=== PATIENT | male | born 1970 | race Caucasian/White ===

== ENCOUNTER → 2020-06-06 06:35 | Outpatient (CLI) | payer BC, SELFPAY ==
[2020-06-06 20:46] LABS: SARS-CoV-2 RNA PCR Negative
== END ==
PROVIDERS: PCP Internal Medicine; Visit Provider Internal Medicine
DX: R05 Cough (principal); Z20.822 Contact with and (suspected) exposure to COVID-19
CPT/HCPCS: C9803; U0003; U0005

== ENCOUNTER 2022-03-08 03:46 | Day surgery (SDC) | payer BC, SELFPAY ==
[2022-02-28 13:56] VITALS: BMI 34.4
--- NOTE | 2022-03-07 14:24 | PM.HPGS ---
History of Present Illness History of Present Illness Consent: Risks, benefits, and alternatives have been discussed and questions answered. Patient agrees to proceed with procedure. Chief complaint: GERD Narrative: Eligio Cao is a 51 year old male with chronic reflux symptoms. This began suddenly about 3 or 4 months ago with burning that would come up into his throat. He had relief with [id number] Pepcid and then Prilosec. He has been switched to prescription pantoprazole but now is having breakthrough symptoms. He denies dysphagia Review of Systems Review of Systems: All systems reviewed & are unremarkable except as noted in HPI and below PMFSH Past Medical History Medical History Diabetes GERD (gastroesophageal reflux disease) Glaucoma HTN (hypertension) Hypercholesterolemia Obesity Social History Social History Smoking status: Never smoker Alcohol intake: current Drinks per week: 2 Substance use: never Substance use type: does not use Living arrangements: other Additional living arrangements comments: With Meds Home Medications and Allergies Home Medications Medication Instructions Recorded Confirmed Type atorvastatin 10 mg tablet 10 mg PO DAILY 02/28/22 03/08/22 History lisinopril 10 mg tablet 10 mg PO DAILY 02/28/22 03/08/22 History metformin 500 mg tablet,extended 500 mg PO DAILY 02/28/22 03/08/22 History release 24 hr montelukast 10 mg tablet 10 mg PO DAILY 02/28/22 03/08/22 History pantoprazole 40 mg tablet,delayed 40 mg PO DAILY 02/28/22 03/08/22 History release semaglutide 0.25 mg or 0.5 mg (2 0.5 mg subcut WEEKLY 02/28/22 03/08/22 History mg/1.5 mL) subcutaneous pen injector (Ozempic) timolol maleate 0.5 % eye drops 1 drp EACH EYE DAILY 02/28/22 03/08/22 History Allergies Allergy/AdvReac Type Severity Reaction Status Date / Time PROCHLORPERAZINE EDISYLATE Allergy Mild SEIZURE Uncoded 03/08/22 06:59 PROCHLORPERAZINE MALEATE Allergy Mild SEIZURE Uncoded 03/08/22 06:59 Exam Const: General: alert Orientation/consciousness: patient oriented x3 Resp: Auscultation: clear to auscultation bilaterally Cardio: Rhythm: regular rhythm GI: GI Palp: Yes Soft to palpation and No Tenderness to palpation present (GI) Neuro: General: patient oriented x3 Assessment and Plan Assessment and plan (1) GERD (gastroesophageal reflux disease): Code(s): K21.9 - Gastro-esophageal reflux disease without esophagitis Status: Acute Assessment and Plan: EGD with possible biopsy or dilatation or cautery.
--- NOTE | 2022-03-07 16:02 | P.PNAN_ITS ---
Anes - Initial Pre Proc Eval Procedure: Operation Date: 03/08/22 08:00 Proposed Procedures p Esophagogastroduodenoscopy - Patrice Yang MD Date/Time: 03/07/22 16:02 Surgeon: Patrice Yang MD Pre Op Diagnosis: GERD Patient Data Age: 51 Gender: M Height: 1.78 m Weight: 109 kg Allergies Allergy/AdvReac Type Severity Reaction Status Date / Time PROCHLORPERAZINE EDISYLATE Allergy Mild SEIZURE Uncoded 03/08/22 06:59 PROCHLORPERAZINE MALEATE Allergy Mild SEIZURE Uncoded 03/08/22 06:59 Home Medications Medication Instructions Recorded Confirmed Type atorvastatin 10 mg tablet 10 mg PO DAILY 02/28/22 03/08/22 History lisinopril 10 mg tablet 10 mg PO DAILY 02/28/22 03/08/22 History metformin 500 mg tablet,extended 500 mg PO DAILY 02/28/22 03/08/22 History release 24 hr montelukast 10 mg tablet 10 mg PO DAILY 02/28/22 03/08/22 History pantoprazole 40 mg tablet,delayed 40 mg PO DAILY 02/28/22 03/08/22 History release semaglutide 0.25 mg or 0.5 mg (2 0.5 mg subcut WEEKLY 02/28/22 03/08/22 History mg/1.5 mL) subcutaneous pen injector (Ozempic) timolol maleate 0.5 % eye drops 1 drp EACH EYE DAILY 02/28/22 03/08/22 History Patient hx anesthesia problems: none Family hx anesthesia problems: none Results Review: All pre-operative results and documents have been reviewed as part of the pre- operative evaluation. REPLACED BY [facility] Past Medical History Medical History Diabetes GERD (gastroesophageal reflux disease) Glaucoma HTN (hypertension) Hypercholesterolemia Obesity Social History Social History Smoking status: Never smoker Alcohol intake: current Drinks per week: 2 Substance use: never Substance use type: does not use Living arrangements: other Additional living arrangements comments: With Anes - Eval Final PreProcedure Day of Procedure 03/07/22 16:02 Patient weight: obese Heart: regular rate and rhythm Lungs: clear to auscultation and normal air movement Airway: Mallampati scale class II Neurological: alert and oriented Last oral intake: >/= 8 hours ASA classification: III Emergent: no Anesthetic plan: proceed Anesthesia type and monitoring: general GIVS Results Review: All pre-operative results and documents have been reviewed as part of the pre- operative evaluation. Informed Consent: The patient's anesthetic plan and its attendant risks and benefits were discussed with the patient/family/POA. Questions were solicited and answers provided to the satisfaction of the patient/family/POA.
[2022-03-08 06:58] LABS: Glucose Point of Care 215 mg/dl (65-105)
[2022-03-08 07:04] VITALS: BP 151/89; PULSE 82; RESP 20; TEMP 36.2; O2SAT 97
[2022-03-08] MEDS: LACTATED RINGERS 1,000 ML 150 ML IV CONT (07:21)
[2022-03-08 08:18] VITALS: BP 103/74; PULSE 96; RESP 19; TEMP 36.2; O2SAT 97
[2022-03-08 08:26] VITALS: BP 115/73; PULSE 78; RESP 18; TEMP 36.2; O2SAT 100
[2022-03-08 08:34] VITALS: BP 128/94; PULSE 84; RESP 22; TEMP 36.2; O2SAT 100
== END 2022-03-08 08:36 | disposition home or self-care (01) ==
PROVIDERS: PCP Internal Medicine; Visit Provider Internal Medicine Gastroenterology
PROC: 0DJ08ZZ Inspection of Upper Intestinal Tract, Via Natural or Artificial Opening Endoscopic (ICD-10-PCS; CPT 43235; principal; 2022-03-08 08:00)
DX: K21.9 Gastro-esophageal reflux disease without esophagitis (principal); K22.2 Esophageal obstruction; E11.9 Type 2 diabetes mellitus without complications; I10 Essential (primary) hypertension; E78.00 Pure hypercholesterolemia, unspecified; H40.9 Unspecified glaucoma; Z79.84 Long term (current) use of oral hypoglycemic drugs; Z79.899 Other long term (current) drug therapy; E66.9 Obesity, unspecified; Z68.35 Body mass index [BMI] 35.0-35.9, adult
CPT/HCPCS: 43239; 82948; 88305; J2704; J7120

== ENCOUNTER 2023-08-25 11:08 | Outpatient (CLI) | payer BC, SELFPAY ==
--- NOTE | ~2023-08-25 | XR_ITS ---
Clinical Indication: Chest pain PA and lateral views of the chest: Comparison: 10/22/2003 Findings: The lungs are clear, without evidence of focal consolidation or pleural effusion. Cardiome diastinal silhouette is within normal limits. Bones and soft tissues are unremarkable. Impression: Normal chest. Reviewed, dictated and finalized at location . Impression: Normal chest.
== END 2023-08-25 11:09 ==
PROVIDERS: PCP Internal Medicine; Visit Provider Internal Medicine
DX: R07.9 Chest pain, unspecified (principal)
CPT/HCPCS: 71046

== ENCOUNTER 2024-12-31 11:06 | Observation (INO) | payer BC, SELFPAY ==
[2024-12-31] VITALS (15 sets, daily range): BP systolic 137–154; BP diastolic 90–104; PULSE 75–96; RESP 12–19; TEMP 36.4–36.9; O2SAT 93–97; BMI 36.7
--- NOTE | ~2024-12-31 | XR_ITS ---
Examination: XR chest 2V Clinical History: chest pain and tightness during stress in cardiology Comparison: 08/25/2023 Technique: PA and Lateral Findings: Cardiomediastinal silhouette normal size and configuration. Lungs clear. No acute bony abnormality. IMPRESSION: 1. No acute cardiopulmonary findings. Reviewed, dictated and finalized at location R. CTURAL FITTER
--- NOTE | 2024-12-31 11:10 | ECG_ITS ---
Test Date: 2024-12-31 11:22:04 Measurements Intervals [place] Rate: 90 P: 26 CA: 125 QRS: 3 QRSD: 108 T: 33 QT: 373 QTc: 457 Interpretive Statements SINUS RHYTHM INCOMPLETE RIGHT BUNDLE BRANCH BLOCK [90+ ms QRS DURATION, TERMINAL R IN V1/V2, 40+ ms S IN I/aVL/V4/V5/V6] NONSPECIFIC T-WAVE ABNORMALITY BORDERLINE ECG No previous ECG available for comparison Electronically Signed On 12-31-2024 11:31:59 COLLISION REPAIR TECHNICIAN by Iglesia Odell M.D.
[2024-12-31 12:04] LABS: Hematocrit 46.4 % (42.0-52.0); Hemoglobin 16.5 g/dL (14.0-18.0); Immature Granulocyte Percent A 0.3 % (0-0.5); Lymphocytes Absolute Auto 2.10 K/mm3 (0.9-3.2); Mean Corpuscular HGB Conc 35.6 g/dl (32-36); Mean Corpuscular Hemoglobin 30.1 pg (26-34); Mean Corpuscular Volume 84.5 fl (80-100); Nucleated Red Blood Cells Absolute Auto 0.000 K/mm3 (0.0-0.012); Nucleated Red Blood Cells Perc 0.0 % (0.0-0.2); Platelet Count Result 229 k/mm3 (150-375); Red Blood Count 5.49 M/mm3 (4.6-6.20); White Blood Count 7.5 K/mm3 (4.5-10.0)
--- NOTE | 2024-12-31 12:15 | ED.CHESTPAIN ---
HPI - Chest Pain General Chief Complaint: Chest Pain Stated Complaint: chest pain and tightness Time Seen by Provider: 12/31/24 12:06 Source: patient Mode of arrival: ambulatory Limitations: no limitations History of Present Illness HPI narrative: 54 white male came to the ED after having chest pain urine cardiac stress test resolved on nitroglycerin. On arrival to the ED patient is asymptomatic. Patient been complaining of intermittent chest pain for the last 3 weeks, come on exertion last less than 15 minutes and then resolves at rest. Denies associated shortness of breath or diaphoresis or radiation of pain. Pain is dull aching, across the lower chest. History of diabetes hypertension hyperlipidemia strong family history of coronary artery disease. Patient did not eat his breakfast or taking his morning medication because of the cardiac stress test today. Related Data Home Medications ?Medication ?Instructions ?Recorded ?Confirmed ?Last Taken ?Type atorvastatin 10 mg tablet 10 mg PO DAILY 02/28/22 12/31/24 12/31/24 15:30 History 10 mg metformin 500 mg tablet,extended 500 mg PO DAILY 02/28/22 12/31/24 12/31/24 15:30 History release 24 hr 500 mg montelukast 10 mg tablet 10 mg PO DAILY 02/28/22 12/31/24 12/31/24 15:30 History 10 mg pantoprazole 40 mg tablet,delayed 40 mg PO DAILY 02/28/22 12/31/24 12/31/24 15:30 History release 40 mg semaglutide 0.25 mg or 0.5 mg (2 0.5 mg subcut WEEKLY 02/28/22 12/31/24 12/29/24 History mg/1.5 mL) subcutaneous pen injector ([facility]) timolol maleate 0.5 % eye drops 1 drp EACH EYE DAILY 02/28/22 12/31/24 12/30/24 21:00 History 1 drp carvedilol 12.5 mg tablet 6.25 mg PO Q12H 12/31/24 12/31/24 12/31/24 15:30 History 12.5 mg losartan 50 mg-hydrochlorothiazide 1 tablet PO DAILY 12/31/24 12/31/24 12/31/24 15:30 History 12.5 mg tablet 1 tablet psyllium husk See Rx Instructions PO DAILY 12/31/24 12/31/24 12/30/24 08:00 History 1 Allergies Allergy/AdvReac Type Severity Reaction Status Date / Time PROCHLORPERAZINE EDISYLATE Allergy Severe SEIZURE Uncoded 12/31/24 16:35 PROCHLORPERAZINE MALEATE Allergy Severe SEIZURE Uncoded 12/31/24 16:35 Review of Systems Review of Systems: All systems reviewed & are unremarkable except as noted in HPI and below PMFSH Past Medical History Medical History Obesity Glaucoma Diabetes HTN (hypertension) Hypercholesterolemia GERD (gastroesophageal reflux disease) Family History Family History Grandparent ETOH abuse Myocardial infarct Father High cholesterol Father Diabetes type 2 Father H/O heart artery stent Father Hypertension Other CAD (coronary artery disease) Myocardial infarct S/P CABG (coronary artery bypass graft) Father CAD (coronary artery disease) Father No problems noted. Social History Social History Smoking status: Never smoker Alcohol intake: current Drinks per week: 3 Substance use: never Substance use type: does not use Lack of Transportation: No Lack of Food: Never True Current Housing: I Have Housing Concerned About Future Housing: No Difficulty Paying Gas/Electric Bills: No Difficulty Paying for Meds: No Currently Unemployed: No Education: Bachelor's Degree Difficulty w/ Childcare or Family Care: No Living arrangements: other Additional living arrangements comments: With Spiritual care concerns: No Exam Narrative: General appearance: Well-developed, well-nourished Skin: Normal color Head: Normocephalic, nontraumatic Eyes: Clear conjunctiva ENT: Oropharynx normal, ears normal, nose normal Neck: Supple, nontender Chest and respiratory: Airway patent, no respiratory distress, no accessory muscle use Heart: Regular rate/rhythm Abdomen: Soft, nontender, no organomegaly, quiet bowel sounds Vascular: Normal peripheral pulses, normal capillary refill. 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, no gross motor deficit Course Vital Signs Vital signs: Vital Signs Pulse Rate 93 12/31/24 11:12 Respiratory Rate 16 12/31/24 11:12 Pulse Oximetry 97 12/31/24 11:12 Oxygen Delivery Room Air 12/31/24 11:12 Temperature 36.4 C L 12/31/24 20:31 Pulse Rate 75 12/31/24 22:00 Respiratory Rate 14 12/31/24 20:31 Blood Pressure 143/92 H 12/31/24 20:31 Pulse Oximetry 93 12/31/24 20:31 Oxygen Delivery Room Air 12/31/24 11:27 MDM - Chest Pain MDM Narrative Medical decision making narrative: Patient had chest pain during cardiac stress test referred to the emergency room for further evaluation Vital signs stable Physical examination is unremarkable Differential diagnosis include unstable angina, coronary artery syndrome Blood workup today includes CBC, CMP, troponin, proBNP showed blood glucose 235, AST 60, ALT 105 otherwise insignificant EKG showed normal sinus rhythm Chest x-ray showed no acute abnormality Elevated blood glucose because patient did not take his diabetes medicine this morning prior to stress test. Patient cardiac score is 4 Diagnosis unstable angina Admit to hospitalist. Differential Diagnosis Differential diagnosis: Likely other (As above) Lab Data Attestation: I reviewed the patient's lab results. 12/31/24 11:54 12/31/24 11:54 Labs: Lab Results 12/31/24 Range/Units 11:54 WBC 7.5 (4.5-10.0) K/mm3 RBC 5.49 (4.6-6.20) M/mm3 Hgb 16.5 (14.0-18.0) g/dL Hct 46.4 (42.0-52.0) % MCV 84.5 (80-100) fl MCH 30.1 (26-34) pg MCHC 35.6 (32-36) g/dl RDW 12.8 (11.5-14.5) % Plt Count 229 (150-375) k/mm3 MPV 9.1 (7.4-10.4) fl Immature Gran % (Auto) 0.3 (0-0.5) % Neut % (Auto) 61.3 (45.5-73.1) % Lymph % (Auto) 27.9 (18.3-44.2) % [place] % (Auto) 7.7 (2.6-8.5) % Eos % (Auto) 2.1 (0-4.4) % Baso % (Auto) 0.7 (0.2-1.2) % Lymph # (Auto) 2.10 (0.9-3.2) K/mm3 [place] # (Auto) 0.6 (0.1-0.6) K/mm3 Eos # (Auto) 0.2 (0-0.3) K/mm3 Baso # (Auto) 0.1 (0.0-0.1) K/mm3 Abs Immat Gran (auto) 0.02 (0.00-0.031) K/mm3 Absolute Neuts (auto) 4.6 (1.3-6.7) K/mm3 Absolute Nucleated RBC 0.000 (0.0-0.012) K/mm3 Nucleated RBC % 0.0 (0.0-0.2) % PT 14.7 (11.1-14.7) Seconds INR 1.1 APTT 31.7 (22.3-36.8) Seconds Sodium 134 L (137-145) mmol/L Potassium 3.5 (3.4-5.0) mmol/L Chloride 99 (98-107) mmol/L Carbon Dioxide 26 (22-30) mmol/L Anion Gap 9 (4-12) mmol/L BUN 10 (9-20) mg/dL Creatinine 0.71 (0.7-1.3) mg/dL Estim Creat Clear Calc 129 ml/min Estimated GFR > 60 (59 - ) Glucose 235 H (65-110) mg/dL Calcium 8.9 (8.4-10.2) mg/dL Total Bilirubin 1.1 (0.2-1.3) mg/dL AST 60 H (17-59) U/L ALT 105 H (6-50) U/L Alkaline Phosphatase 77 (38-126) U/L Troponin I < 0.012 (0.000-0.034) ng/mL Total Protein 7.6 (6.3-8.2) g/dL Albumin 4.3 (3.5-5.1) g/dL Lipase 156 (23-300) U/L Imaging Data Radiologist's impression: Impressions Chest X-Ray 12/31/24 11:36 IMPRESSION: 1. No acute cardiopulmonary findings. ECG Data EKG #1: Attestation: I personally reviewed and interpreted this ECG as follows: ECG completion date: 12/31/24 Interpretation: Normal sinus rhythm at 90 beats per minute, incomplete right bundle-branch block, nonspecific T-wave abnormality, borderline EKG, no previous EKG available for comparison Critical Care Time Critical Care Time Critical Care Time: No Discharge Plan Discharge Clinical Impression: Angina pectoris, unstable Patient Disposition: Still a Patient Condition: Improved Quality HEART score for chest pain patients History: moderately suspicious ECG: normal Age: > 45 and < 65 years Risk factors: > or = to 3 risk factors of atherosclerotic disease Troponin: < or = to 1x normal limit Heart score: 4
[2024-12-31 12:18] LABS: INR 1.1; Prothrombin Time 14.7 Seconds (11.1-14.7)
[2024-12-31 12:19] LABS: Partial Thromboplastin Time 31.7 Seconds (22.3-36.8)
[2024-12-31 12:35] LABS: Alanine Aminotransferase 105 U/L (6-50); Albumin Level 4.3 g/dL (3.5-5.1); Alkaline Phosphatase 77 U/L (38-126); Anion Gap 9 mmol/L (4-12); Aspartate Amino Transferase 60 U/L (17-59); Bilirubin,Total 1.1 mg/dL (0.2-1.3); Blood Urea Nitrogen 10 mg/dL (9-20); Calcium 8.9 mg/dL (8.4-10.2); Carbon Dioxide 26 mmol/L (22-30); Chloride 99 mmol/L (98-107); Estimated CRCL calculation 129 ml/min; Estimated Glomerular Filt Rate > 60; Glucose 235 mg/dL (65-110); Lipase 156 U/L (23-300); Potassium 3.5 mmol/L (3.4-5.0); Sodium 134 mmol/L (137-145); Total Protein 7.6 g/dL (6.3-8.2)
[2024-12-31 12:46] LABS: Troponin I < 0.012 ng/mL (0.000-0.034)
--- OUTSIDE RECORDS SUMMARY | 2024-12-31 12:48 | XMS_ITS | Data Portability ---
Author Organization [facility] [place] Address [address] [place] [address] Care Team Providers Care Music Theory Professor Name Role Phone AYANNA GARCIAS Primary Care Provider TORO BRITT JR Motorcycle Fabricator [phone] [facility] [employer] Project Manager [phone] Assessment Encounter Date Assessment Date Assessment LastModified by Organization Details LastModified Time 05/05/2023 05/05/2023 Blood work old records dyslipidemia atorvastatin diabetes metformin and Ozempic hypertension lisinopril GERD pantoprazole follow-up 4 months [email or web address] Not available 05/11/2023 21:46:09 08/25/2023 08/25/2023 EKG shows a normal sinus rhythm his blood pressure is up a little bit today increase lisinopril to 20 mg daily he will get a chest x-ray for the inflammation in his chest wall prednisone 40 mg daily x3 days he will let me know in 72 hours how he is doing blood work has been reviewed I will wait to hear from him in 72 hours he was instructed that if his symptoms worsen or if he starts developing shortness of breath or dizziness or feeling like he is going to pass out or diaphoresis explained in layman's terms his unexplained sweaty episodes to go to the emergency room and he voiced understanding [email or web address] Not available 08/25/2023 22:59:13 01/05/2024 01/05/2024 we will continue current therapy healthy lifestyle care instructions blood work has been ordered get colonoscopy that he has had done at [facility] set up for Podiatry for foot exam he continues to see his eye exams annually all questions answered follow up 4 months Not available 01/05/2024 22:26:28 07/01/2024 07/01/2024 Blood work ordered we will continue current therapy he will follow up in 6 months' time [email or web address] Not available 07/03/2024 22:12:39 12/23/2024 12/23/2024 EKG does have some baseline artifact but appears to be a sinus rhythm maybe some T-wave flattening anterior precordial leads and high lateral leads again there are some irregularities due to artifact DC (lisinopril. Check CBC CMP lipid high sensitivity CRP and lipoprotein a Lexiscan complete echo cardiology consultation see me in 3 weeks. [email or web address] Not available 12/26/2024 22:50:16 Plan of Treatment Reminders Order Date Submit Date Provider Last Modified By Organization Details Last Modified Time Details Appointments ANY 15 2024 02:00P M Ayanna Garcias MD Not available Not available Not available Lab HbA1c (hemoglob in A1c), blood 2024 025 [email or web address] [facility] (Centralized Electronic Ordering - All Locations), Patient Can Go To The Location Of Their Choice, 12/23/2024 15:05:36 CRP, high sensitivi ty, serum or plasma 2024 025 [email or web address] [facility] (Centralized Electronic Ordering - All Locations), Patient Can Go To The Location Of Their Choice, 12/23/2024 15:05:36 lipoprote in a, qn, serum 2024 025 [facility] (Centralized Electronic Ordering - All Locations), Patient Can Go To The Location Of Their Choice, 12/23/2024 15:05:36 CMP, serum or plasma 2024 025 [email or web address] [facility] (Centralized Electronic Ordering - All Locations), Patient Can Go To The Location Of Their Choice, 12/23/2024 15:05:36 lipid panel, serum 2024 025 [email or web address] [facility] ([facility]ized Electronic Ordering - All Locations), Patient Can Go To The Location Of Their Choice, 12/23/2024 15:05:36 CBC w/ auto diff 2024 025 [id number] [facility] (Centralized Electronic Ordering - All Locations), Patient Can Go To The Location Of Their Choice, [id number] 12/23/2024 15:05:36 HbA1c (hemoglob in A1c), blood 2024 025 [facility], [address], [address], [place], [address], 07/21/2024 09:09:09 lipid panel, serum 2024 025 [facility], [address], [address], [place], [address], 07/21/2024 09:09:07 CMP, serum or plasma 2024 025 [facility], [address], [address], [place], [address], 07/21/2024 09:09:08 CBC w/ auto diff 2024 025 [facility], [address], [address], [place], [address], 07/21/2024 09:09:10 HbA1c (hemoglob in A1c), blood 2023 024 [facility], [address], [address], [place], [address], 01/30/2024 11:10:26 albumin/c reatinine , mass ratio, urine 2023 024 [facility], [address], [address], [place], [address], 01/30/2024 11:10:23 lipid panel, serum 2023 024 [facility], [address], [address], [place], [address], 01/30/2024 11:10:24 CBC w/ auto diff 2023 024 [facility], [address], [address], [place], [address], 01/30/2024 11:10:28 CMP, serum or plasma 2023 024 [facility], [address], [address], [place], [address], 01/30/2024 11:10:25 PSA, total, serum or plasma 2023 024 [facility], [address], [address], [place], [address], 08/23/2023 10:20:33 HbA1c (hemoglob in A1c), blood 2023 024 [facility], [address], [address], [place], [address], 08/23/2023 10:20:32 CMP, serum or plasma 2023 024 [facility], [address], [address], [place], [address], 08/23/2023 10:20:32 lipid panel, serum 2023 024 [facility], [address], [address], [place], [address], 08/23/2023 10:20:31 CBC w/ auto diff 2023 024 [facility], [address], [address], [place], [address], 08/23/2023 10:20:33 Referral cardiolog ist referral 2024 025 [email or web address] [facility], [address] [place] [address] [address], [place], [address], 12/23/2024 15:05:36 podiatris t referral 2023 024 [facility] Toro Britt Jr DPM, [address], [address], [place], [address], 03/02/2024 12:53:50 Procedures treadmill nuclear stress test (PROC) 2024 [facility], [address] [place] [address] [address], [facility] [address], [place], [address], 12/31/2024 12:14:23 Surgeries None recorded. Imaging US, echocardi ogram 2024 [email or web address] [facility], [facility] [address], [facility] [address], [place], [address], 12/24/2024 09:10:35 electroca rdiogram 2024 025 [email or web address] In-Office Order, Internal Use Only DO Not Attach Compendium DO Not Attach Compendium, Do Not Delete/merge, 12/23/2024 15:05:36 electroca rdiogram 2023 024 [email or web address] In-Office Order, Internal Use Only DO Not Attach Compendium DO Not Attach Compendium, Do Not Delete/merge, 08/25/2023 13:19:24 XR, chest, 2 view 2023 024 [email or web address] [facility] (Imaging), [address] [facility] [address], [place], [address], 08/25/2023 13:19:24 Medication Orders losartan 50 mg-hydroc hlorothia zide 12.5 mg tablet 2024 [email or web address] [id number], [address], [place], [place], [id number], 12/23/2024 15:05:36 Patient TargetsNo targets recorded. 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 Referral for Type 2 diabetes mellitus Referring Physician: Ayanna Garcias, Internal Medicine, Encounter Date: 01/05/2024 Safety Supervisor Referral for El ectrocardiogram abnormal Referring Physician: Ayanna Garcias, Internal Medicine, Encounter Date: 12/23/2024 Results Created Date Observation Date Name Description Value Unit Range Abnormal Flag Note LastModifiedBy Organization Detail LastModifiedTime 08/22/1908/23/2023 LIPID PANEL cholesterol, total 143 mg/dL 100-19 9 Not Available [facility] ([facility]) [address] [facility], [place], [address], 08/23/2023 10:20:31 08/22/1908/23/2023 LIPID PANEL triglyceride s 302 mg/dL 0-149 above high normal Not Available [facility] ([facility]) [address] [facility], [place], [address], 08/23/2023 10:20:31 08/22/19 24 08/23/2023 LIPID PANEL HDL cholesterol 34 mg/dL >39 below low normal Not Available [facility] ([facility]) [address] [place], [address], 08/23/2023 10:20:31 08/22/19 24 08/23/2023 LIPID PANEL VLDL cholesterol erick 48 mg/dL 5-40 above high normal Not Available [facility] ([facility]) [address] [place], [address], 08/23/2023 10:20:31 08/22/19 24 08/23/2023 LIPID PANEL LDL chol calc [facility]) 61 mg/dL 0-99 Not Available [facility] ([facility]) [address] [place], [address], 08/23/2023 10:20:31 08/22/19 24 08/23/2023 COMP. METAB OLIC PANEL (14) glucose 170 mg/dL 70-99 above high normal Not Available [facility] ([facility]) [address] [place], [address], 08/23/2023 10:20:32 08/22/19 24 08/23/2023 COMP. METAB OLIC PANEL (14) BUN 13 mg/dL 6-24 Not Available [facility] ([facility]) [address] [place], [address], 08/23/2023 10:20:32 08/22/19 24 08/23/2023 COMP. METAB OLIC PANEL (14) creatinine 0.75 mg/dL 0.76-1 .27 below low normal Not Available [facility] ([facility]) [address] [place], [address], 08/23/2023 10:20:32 08/22/19 24 08/23/2023 COMP. METAB OLIC PANEL (14) eGFR 109 mL/mi n/1.7 3 >59 Not Available [facility] ([facility]) [address] [place], [address], 08/23/2023 10:20:32 08/22/19 24 08/23/2023 COMP. METAB OLIC PANEL (14) BUN/creatini ne ratio 17 9-20 Not Available [facility] ([facility]) [address] [facility], [place], [address], 08/23/2023 10:20:32 08/22/19 24 08/23/2023 COMP. METAB OLIC PANEL (14) sodium 139 mmol/ L 134-14 4 Not Available [facility] ([facility]) [address] [facility], [place], [address], 08/23/2023 10:20:32 08/22/19 24 08/23/2023 COMP. METAB OLIC PANEL (14) potassium 3.9 mmol/ L 3.5-5. 2 Not Available [facility] ([facility]) [address] [facility], [place], [address], 08/23/2023 10:20:32 08/22/19 24 08/23/2023 COMP. METAB OLIC PANEL (14) chloride 100 mmol/ L 96-106 Not Available [facility] ([facility]) [address] [facility], [place], [address], 08/23/2023 10:20:32 08/22/19 24 08/23/2023 COMP. METAB OLIC PANEL (14) carbon dioxide, total 24 mmol/ L 20-29 Not Available [facility] ([facility]) [address] [facility] [place], [address], 08/23/2023 10:20:32 08/22/19 24 08/23/2023 COMP. METAB OLIC PANEL (14) calcium 9.4 mg/dL 8.7-10 .2 Not Available [facility] ([facility]) [address] [facility] [place], [address], 08/23/2023 10:20:32 08/22/19 24 08/23/2023 COMP. METAB OLIC PANEL (14) protein, total 7.0 g/dL 6.0-8. 5 Not Available [facility] ([facility]) [address] [facility], [place], [address], 08/23/2023 10:20:32 08/22/19 24 08/23/2023 COMP. METAB OLIC PANEL (14) albumin 4.3 g/dL 3.8-4. 9 Not Available [facility] ([facility]) [address] [facility], [place], [address], 08/23/2023 10:20:32 08/22/19 24 08/23/2023 COMP. METAB OLIC PANEL (14) globulin, total 2.7 g/dL 1.5-4. 5 Not Available [facility] ([facility]) [address] [facility], [place], [address], 08/23/2023 10:20:32 08/22/19 24 08/23/2023 COMP. METAB OLIC PANEL (14) bilirubin, total 0.7 mg/dL 0.0-1. 2 Not Available [facility] ([facility]) [address] [facility], [place], [address], 08/23/2023 10:20:32 08/22/19 24 08/23/2023 COMP. METAB OLIC PANEL (14) alkaline phosphatase 90 IU/L 44-121 Not Available [facility] ([facility]) [address] [facility] [place], [address], 08/23/2023 10:20:32 08/22/19 24 08/23/2023 COMP. METAB OLIC PANEL (14) AST (SGOT) 51 IU/L 0-40 above high normal Not Available [facility] ([facility]) [address] [facility] [place], [address], 08/23/2023 10:20:32 08/22/19 24 08/23/2023 COMP. METAB OLIC PANEL (14) ALT (SGPT) 98 IU/L 0-44 above high normal Not Available [facility] ([facility]) [address] [facility] [place], [address], 08/23/2023 10:20:32 08/22/19 24 08/23/2023 HEMOG LOBIN A1C hemoglobin A1C 8.1 % 4.8-5. 6 above high normal Predi abete s: 5.7 - 6.4 Diabe otoniel: >6.4 Glyce shabnam contr ol for adult s with diabe otoniel: <7.0 Not Available [facility] ([facility]) [address] [facility], [place], [address], 08/23/2023 10:20:32 08/22/19 24 08/23/2023 CBC WITH DIFFE RENTI AL/PL ATELE T WBC 6.1 x10e3 /uL 3.4-10 .8 Not Available [facility] ([facility]) [address] [facility], [place], [address], 08/23/2023 10:20:33 08/22/19 24 08/23/2023 CBC WITH DIFFE RENTI AL/PL ATELE T RBC 5.63 x10e6 /uL 4.14-5 .80 Not Available [facility] ([facility]) [address] [facility], [place], [address], 08/23/2023 10:20:33 08/22/19 24 08/23/2023 CBC WITH DIFFE RENTI AL/PL ATELE T hemoglobin 17.1 g/dL 13.0-1 7.7 Not Available [facility] ([facility]) [address] [facility], [place], [address], 08/23/2023 10:20:33 08/22/19 24 08/23/2023 CBC WITH DIFFE RENTI AL/PL ATELE T hematocrit 49.6 % 37.5-5 1.0 Not Available [facility] ([facility]) [address] [facility], [place], [address], 08/23/2023 10:20:33 08/22/19 24 08/23/2023 CBC WITH DIFFE RENTI AL/PL ATELE T MCV 88 fL 79-97 Not Available [facility] ([facility]) [address] [facility], [place], [address], 08/23/2023 10:20:33 08/22/19 24 08/23/2023 CBC WITH DIFFE RENTI AL/PL ATELE T MCH 30.4 pg 26.6-3 3.0 Not Available [facility] ([facility]) [address] [facility], [place], [address], 08/23/2023 10:20:33 08/22/19 24 08/23/2023 CBC WITH DIFFE RENTI AL/PL ATELE T MCHC 34.5 g/dL 31.5-3 5.7 Not Available [facility] ([facility]) [address] [facility], [place], [address], 08/23/2023 10:20:33 08/22/19 24 08/23/2023 CBC WITH DIFFE RENTI AL/PL ATELE T RDW 13.6 % 11.6-1 5.4 Not Available [facility] ([facility]) [address] [facility], [place], [address], 08/23/2023 10:20:33 08/22/19 24 08/23/2023 CBC WITH DIFFE RENTI AL/PL ATELE T platelets 242 x10e3 /uL 150-45 0 Not Available [facility] ([facility]) [address] [facility], [place], [address], 08/23/2023 10:20:33 08/22/19 24 08/23/2023 CBC WITH DIFFE RENTI AL/PL ATELE T neutrophils 52 % notest ab. Not Available [facility] ([facility]) [address] [place], [address], 08/23/2023 10:20:33 08/22/19 24 08/23/2023 CBC WITH DIFFE RENTI AL/PL ATELE T lymphs 36 % notest ab. Not Available [facility] ([facility]) [address] [facility], [place], [address], 08/23/2023 10:20:33 08/22/19 24 08/23/2023 CBC WITH DIFFE RENTI AL/PL ATELE T monocytes 8 % notest ab. Not Available [facility] ([facility]) [address] [facility], [place], [address], 08/23/2023 10:20:33 08/22/19 24 08/23/2023 CBC WITH DIFFE RENTI AL/PL ATELE T eos 3 % notest ab. Not Available [facility] ([facility]) [address] [facility], [place], [address], 08/23/2023 10:20:33 08/22/19 24 08/23/2023 CBC WITH DIFFE RENTI AL/PL ATELE T basos 1 % notest ab. Not Available [facility] ([facility]) [address] [facility], [place], [address], 08/23/2023 10:20:33 08/22/19 24 08/23/2023 CBC WITH DIFFE RENTI AL/PL ATELE T neutrophils (absolute) 3.1 x10e3 /uL 1.4-7. 0 Not Available [facility] ([facility]) [address] [facility], [place], [address], 08/23/2023 10:20:33 08/22/19 24 08/23/2023 CBC WITH DIFFE RENTI AL/PL ATELE T lymphs (absolute) 2.2 x10e3 /uL 0.7-3. 1 Not Available [facility] ([facility]) [address] [facility], [place], [address], 08/23/2023 10:20:33 08/22/19 24 08/23/2023 CBC WITH DIFFE RENTI AL/PL ATELE T monocytes(ab solute) 0.5 x10e3 /uL 0.1-0. 9 Not Available [facility] ([facility]) [address] [facility], [place], [address], 08/23/2023 10:20:33 08/22/19 24 08/23/2023 CBC WITH DIFFE RENTI AL/PL ATELE T eos (absolute) 0.2 x10e3 /uL 0.0-0. 4 Not Available [facility] ([facility]) [address] [facility], [place], [address], 08/23/2023 10:20:33 08/22/19 24 08/23/2023 CBC WITH DIFFE RENTI AL/PL ATELE T baso (absolute) 0.1 x10e3 /uL 0.0-0. 2 Not Available [facility] ([facility]) [address] [facility], [place], [address], 08/23/2023 10:20:33 08/22/19 24 08/23/2023 CBC WITH DIFFE RENTI AL/PL ATELE T immature granulocytes 0 % notest ab. Not Available [facility] ([facility]) [address] [facility], [place], [address], 08/23/2023 10:20:33 08/22/19 24 08/23/2023 CBC WITH DIFFE RENTI AL/PL ATELE T immature grans (abs) 0.0 x10e3 /uL 0.0-0. 1 Not Available [facility] ([facility]) [address] [place], [address], 08/23/2023 10:20:33 08/22/19 24 08/23/2023 PROST ATE-S PECIF IC AG prostate specific Ag 0.5 NG/mL 0.0-4. 0 Vj ECLIA metho dolog y. Accor ding to the Ameri can [employer] g[employer] iatio n, Serum PSA shoul d decre ase and remai n at undet ectab le level s after radic al prost atect cassia. The AUA defin es bioch emica l recur rence as an initi al PSA value 0.2 ng/mL or great er follo wed by a subse quent confi rmato ry PSA value 0.2 ng/mL or great er. Value s obtai sumit with diffe rent assay metho ds or kits canno t be used inter garcia eably . Resul ts canno t be inter prete d as absol [place] evide nce of the prese nce or absen ce of [facility] se. Not Available [facility] ([facility]) [address] [facility], [place], [address], 08/23/2023 10:20:33 01/29/20 24 01/30/2024 ALBUM IN/CR EATIN INE RATIO ,URIN E creatinine, urine 35.0 mg/dL notest ab. Not Available [facility] ([facility]) [address] [place], [address], 01/30/2024 11:10:23 01/29/20 24 01/30/2024 ALBUM IN/CR EATIN INE RATIO ,URIN E albumin, urine 84.0 ug/mL notest ab. Not Available [facility] ([facility]) [address] [facility], [place], [address], 01/30/2024 11:10:23 01/29/20 24 01/30/2024 ALBUM IN/CR EATIN INE RATIO ,URIN E alb/creat ratio 240 mg/g_ creat 0-29 above high normal Kayla l: 0 - 29 Moder ately incre ased: 30 - 300 Sever krissy incre ased: >300 Not Available [facility] ([facility]) [address] [place], [address], 01/30/2024 11:10:23 01/29/20 24 01/30/2024 LIPID PANEL cholesterol, total 164 mg/dL 100-19 9 Not Available [facility] ([facility]) [address] [place], [address], 01/30/2024 11:10:24 01/29/20 24 01/30/2024 LIPID PANEL triglyceride s 317 mg/dL 0-149 above high normal Not Available [facility] ([facility]) [address] [place], [address], 01/30/2024 11:10:24 01/29/20 24 01/30/2024 LIPID PANEL HDL cholesterol 35 mg/dL >39 below low normal Not Available [facility] ([facility]) [address] [place], [address], 01/30/2024 11:10:24 01/29/20 24 01/30/2024 LIPID PANEL VLDL cholesterol erick 51 mg/dL 5-40 above high normal Not Available [facility] ([facility]) [address] [place], [address], 01/30/2024 11:10:24 01/29/20 24 01/30/2024 LIPID PANEL LDL chol calc ([facility]) 78 mg/dL 0-99 Not Available [facility] ([facility]) [address] [place], [address], 01/30/2024 11:10:24 01/29/20 24 01/30/2024 COMP. METAB OLIC PANEL (14) glucose 144 mg/dL 70-99 above high normal Not Available [facility] ([facility]) [address] [place], [address], 01/30/2024 11:10:25 01/29/20 24 01/30/2024 COMP. METAB OLIC PANEL (14) BUN 11 mg/dL 6-24 Not Available [facility] ([facility]) [address] [place], [address], 01/30/2024 11:10:25 01/29/20 24 01/30/2024 COMP. METAB OLIC PANEL (14) creatinine 0.71 mg/dL 0.76-1 .27 below low normal Not Available [facility] ([facility]) [address] [place], [address], 01/30/2024 11:10:25 01/29/20 24 01/30/2024 COMP. METAB OLIC PANEL (14) eGFR 110 mL/mi n/1.7 3 >59 Not Available [facility] ([facility]) [address] [facility], [place], [address], 01/30/2024 11:10:25 01/29/20 24 01/30/2024 COMP. METAB OLIC PANEL (14) BUN/creatini ne ratio 15 9-20 Not Available [facility] ([facility]) [address] [facility], [place], [address], 01/30/2024 11:10:25 01/29/20 24 01/30/2024 COMP. METAB OLIC PANEL (14) sodium 139 mmol/ L 134-14 4 Not Available [facility] ([facility]) [address] [facility], [place], [address], 01/30/2024 11:10:25 01/29/20 24 01/30/2024 COMP. METAB OLIC PANEL (14) potassium 3.7 mmol/ L 3.5-5. 2 Not Available [facility] ([facility]) [address] [facility], [place], [address], 01/30/2024 11:10:25 01/29/20 24 01/30/2024 COMP. METAB OLIC PANEL (14) chloride 99 mmol/ L 96-106 Not Available [facility] ([facility]) [address] [facility], [place], [address], 01/30/2024 11:10:25 01/29/20 24 01/30/2024 COMP. METAB OLIC PANEL (14) carbon dioxide, total 27 mmol/ L 20-29 Not Available [facility] ([facility]) [address] [facility], [place], [address], 01/30/2024 11:10:25 01/29/20 24 01/30/2024 COMP. METAB OLIC PANEL (14) calcium 9.3 mg/dL 8.7-10 .2 Not Available [facility] ([facility]) [address] [place], [address], 01/30/2024 11:10:25 01/29/20 24 01/30/2024 COMP. METAB OLIC PANEL (14) protein, total 7.1 g/dL 6.0-8. 5 Not Available [facility] ([facility]) [address] [place], [address], 01/30/2024 11:10:25 01/29/20 24 01/30/2024 COMP. METAB OLIC PANEL (14) albumin 4.3 g/dL 3.8-4. 9 Not Available [facility] ([facility]) [address] [place], [address], 01/30/2024 11:10:25 01/29/20 24 01/30/2024 COMP. METAB OLIC PANEL (14) globulin, total 2.8 g/dL 1.5-4. 5 Not Available [facility] ([facility]) [address] [place], [address], 01/30/2024 11:10:25 01/29/20 24 01/30/2024 COMP. METAB OLIC PANEL (14) bilirubin, total 0.7 mg/dL 0.0-1. 2 Not Available [facility] ([facility]) [address] [place], [address], 01/30/2024 11:10:25 01/29/20 24 01/30/2024 COMP. METAB OLIC PANEL (14) alkaline phosphatase 75 IU/L 44-121 Not Available [facility] ([facility]) [address] [place], [address], 01/30/2024 11:10:25 01/29/20 24 01/30/2024 COMP. METAB OLIC PANEL (14) AST (SGOT) 49 IU/L 0-40 above high normal Not Available [facility] ([facility]) [address] [place], [address], 01/30/2024 11:10:25 01/29/20 24 01/30/2024 COMP. METAB OLIC PANEL (14) ALT (SGPT) 88 IU/L 0-44 above high normal Not Available [facility] ([facility]) [address] [facility], [place], [address], 01/30/2024 11:10:25 01/29/20 24 01/30/2024 HEMOG LOBIN A1C hemoglobin A1C 7.9 % 4.8-5. 6 above high normal Predi abete s: 5.7 - 6.4 Diabe otoniel: >6.4 Glyce shabnam contr ol for adult s with diabe otoniel: <7.0 Not Available [facility] ([facility]) [address] [facility], [place], [address], 01/30/2024 11:10:26 01/29/20 24 01/30/2024 CBC WITH DIFFE RENTI AL/PL ATELE T WBC 8.3 x10e3 /uL 3.4-10 .8 Not Available [facility] ([facility]) [address] [place], [address], 01/30/2024 11:10:28 01/29/20 24 01/30/2024 CBC WITH DIFFE RENTI AL/PL ATELE T RBC 5.55 x10e6 /uL 4.14-5 .80 Not Available [facility] ([facility]) [address] [place], [address], 01/30/2024 11:10:28 01/29/20 24 01/30/2024 CBC WITH DIFFE RENTI AL/PL ATELE T hemoglobin 16.6 g/dL 13.0-1 7.7 Not Available [facility] ([facility]) [address] [place], [address], 01/30/2024 11:10:28 01/29/20 24 01/30/2024 CBC WITH DIFFE RENTI AL/PL ATELE T hematocrit 49.5 % 37.5-5 1.0 Not Available [facility] ([facility]) [address] [facility], [place], [address], 01/30/2024 11:10:28 01/29/20 24 01/30/2024 CBC WITH DIFFE RENTI AL/PL ATELE T MCV 89 fL 79-97 Not Available [facility] ([facility]) [address] [facility], [place], [address], 01/30/2024 11:10:28 01/29/20 24 01/30/2024 CBC WITH DIFFE RENTI AL/PL ATELE T MCH 29.9 pg 26.6-3 3.0 Not Available [facility] ([facility]) [address] [facility], [place], [address], 01/30/2024 11:10:28 01/29/20 24 01/30/2024 CBC WITH DIFFE RENTI AL/PL ATELE T MCHC 33.5 g/dL 31.5-3 5.7 Not Available [facility] ([facility]) [address] [facility], [place], [address], 01/30/2024 11:10:28 01/29/20 24 01/30/2024 CBC WITH DIFFE RENTI AL/PL ATELE T RDW 13.0 % 11.6-1 5.4 Not Available [facility] ([facility]) [address] [facility], [place], [address], 01/30/2024 11:10:28 01/29/20 24 01/30/2024 CBC WITH DIFFE RENTI AL/PL ATELE T platelets 248 x10e3 /uL 150-45 0 Not Available [facility] ([facility]) [address] [place], [address], 01/30/2024 11:10:28 01/29/20 24 01/30/2024 CBC WITH DIFFE RENTI AL/PL ATELE T neutrophils 58 % notest ab. Not Available [facility] ([facility]) [address] [facility], [place], [address], 01/30/2024 11:10:28 01/29/20 24 01/30/2024 CBC WITH DIFFE RENTI AL/PL ATELE T lymphs 31 % notest ab. Not Available [facility] ([facility]) [address] [facility], [place], [address], 01/30/2024 11:10:28 01/29/20 24 01/30/2024 CBC WITH DIFFE RENTI AL/PL ATELE T monocytes 8 % notest ab. Not Available [facility] ([facility]) [address] [facility], [place], [address], 01/30/2024 11:10:28 01/29/20 24 01/30/2024 CBC WITH DIFFE RENTI AL/PL ATELE T eos 2 % notest ab. Not Available [facility] ([facility]) [address] [facility], [place], [address], 01/30/2024 11:10:28 01/29/20 24 01/30/2024 CBC WITH DIFFE RENTI AL/PL ATELE T basos 1 % notest ab. Not Available [facility] ([facility]) [address] [facility], [place], [address], 01/30/2024 11:10:28 01/29/20 24 01/30/2024 CBC WITH DIFFE RENTI AL/PL ATELE T neutrophils (absolute) 4.7 x10e3 /uL 1.4-7. 0 Not Available [facility] ([facility]) [address] [facility], [place], [address], 01/30/2024 11:10:28 01/29/20 24 01/30/2024 CBC WITH DIFFE RENTI AL/PL ATELE T lymphs (absolute) 2.6 x10e3 /uL 0.7-3. 1 Not Available [facility] ([facility]) [address] [facility], [place], [address], 01/30/2024 11:10:28 01/29/20 24 01/30/2024 CBC WITH DIFFE RENTI AL/PL ATELE T monocytes(ab solute) 0.7 x10e3 /uL 0.1-0. 9 Not Available [facility] ([facility]) [address] [facility], [place], [address], 01/30/2024 11:10:28 01/29/20 24 01/30/2024 CBC WITH DIFFE RENTI AL/PL ATELE T eos (absolute) 0.2 x10e3 /uL 0.0-0. 4 Not Available [facility] ([facility]) [address] [facility], [place], [address], 01/30/2024 11:10:28 01/29/20 24 01/30/2024 CBC WITH DIFFE RENTI AL/PL ATELE T baso (absolute) 0.1 x10e3 /uL 0.0-0. 2 Not Available [facility] ([facility]) [address] [facility], [place], [address], 01/30/2024 11:10:28 01/29/20 24 01/30/2024 CBC WITH DIFFE RENTI AL/PL ATELE T immature granulocytes 0 % notest ab. Not Available [facility] ([facility]) [address] [place], [address], 01/30/2024 11:10:28 01/29/20 24 01/30/2024 CBC WITH DIFFE RENTI AL/PL ATELE T immature grans (abs) 0.0 x10e3 /uL 0.0-0. 1 Not Available [facility] ([facility]) [address] [place], [address], 01/30/2024 11:10:28 07/21/19 25 07/21/2024 LIPID PANEL cholesterol, total 159 mg/dL 100-19 9 Not Available [facility] ([facility]) [address] [place], [address], 07/21/2024 09:09:07 07/21/19 25 07/21/2024 LIPID PANEL triglyceride s 388 mg/dL 0-149 above high normal Not Available [facility] ([facility]) [address] [place], [address], 07/21/2024 09:09:07 07/21/19 25 07/21/2024 LIPID PANEL HDL cholesterol 35 mg/dL >39 below low normal Not Available [facility] ([facility]) [address] [place], [address], 07/21/2024 09:09:07 07/21/19 25 07/21/2024 LIPID PANEL VLDL cholesterol erick 60 mg/dL 5-40 above high normal Not Available [facility] ([facility]) [address] [place], [address], 07/21/2024 09:09:07 07/21/19 25 07/21/2024 LIPID PANEL LDL chol calc ([facility]) 64 mg/dL 0-99 Not Available [facility] ([facility]) [address] [place], [address], 07/21/2024 09:09:07 07/21/19 25 07/21/2024 COMP. METAB OLIC PANEL (14) glucose 179 mg/dL 70-99 above high normal Not Available [facility] ([facility]) [address] [place], [address], 07/21/2024 09:09:08 07/21/19 25 07/21/2024 COMP. METAB OLIC PANEL (14) BUN 11 mg/dL 6-24 Not Available [facility] ([facility]) [address] [place], [address], 07/21/2024 09:09:08 07/21/19 25 07/21/2024 COMP. METAB OLIC PANEL (14) creatinine 0.71 mg/dL 0.76-1 .27 below low normal Not Available [facility] ([facility]) [address], [place], [address], 07/21/2024 09:09:08 07/21/19 25 07/21/2024 COMP. METAB OLIC PANEL (14) eGFR 110 mL/mi n/1.7 3 >59 Not Available [facility] ([facility]) [address] [place], [address], 07/21/2024 09:09:08 07/21/19 25 07/21/2024 COMP. METAB OLIC PANEL (14) BUN/creatini ne ratio 15 9-20 Not Available [facility] ([facility]) [address], [place], [address], 07/21/2024 09:09:08 07/21/19 25 07/21/2024 COMP. METAB OLIC PANEL (14) sodium 139 mmol/ L 134-14 4 Not Available [facility] ([facility]) [address] [place], [address], 07/21/2024 09:09:08 07/21/19 25 07/21/2024 COMP. METAB OLIC PANEL (14) potassium 4.0 mmol/ L 3.5-5. 2 Not Available [facility] ([facility]) [address] [place], [address], 07/21/2024 09:09:08 07/21/19 25 07/21/2024 COMP. METAB OLIC PANEL (14) chloride 99 mmol/ L 96-106 Not Available [facility] ([facility]) [address] [place], [address], 07/21/2024 09:09:08 07/21/19 25 07/21/2024 COMP. METAB OLIC PANEL (14) carbon dioxide, total 25 mmol/ L 20-29 Not Available [facility] ([facility]) [address] [facility], [place], [address], 07/21/2024 09:09:08 07/21/19 25 07/21/2024 COMP. METAB OLIC PANEL (14) calcium 9.7 mg/dL 8.7-10 .2 Not Available [facility] ([facility]) [address] [facility], [place], [address], 07/21/2024 09:09:08 07/21/19 25 07/21/2024 COMP. METAB OLIC PANEL (14) protein, total 7.2 g/dL 6.0-8. 5 Not Available [facility] ([facility]) [address] [facility], [place], [address], 07/21/2024 09:09:08 07/21/19 25 07/21/2024 COMP. METAB OLIC PANEL (14) albumin 4.5 g/dL 3.8-4. 9 Not Available [facility] ([facility]) [address] [facility], [place], [address], 07/21/2024 09:09:08 07/21/19 25 07/21/2024 COMP. METAB OLIC PANEL (14) globulin, total 2.7 g/dL 1.5-4. 5 Not Available [facility] ([facility]) [address] [facility], [place], [address], 07/21/2024 09:09:08 07/21/19 25 07/21/2024 COMP. METAB OLIC PANEL (14) bilirubin, total 0.6 mg/dL 0.0-1. 2 Not Available [facility] ([facility]) [address] [facility], [place], [address], 07/21/2024 09:09:08 07/21/19 25 07/21/2024 COMP. METAB OLIC PANEL (14) alkaline phosphatase 83 IU/L 44-121 Not Available [facility] ([facility]) [address] [facility] [place], [address], 07/21/2024 09:09:08 07/21/1907/21/2024 COMP. METAB OLIC PANEL (14) AST (SGOT) 43 IU/L 0-40 above high normal Not Available [facility] ([facility]) [address] [place], [address], 07/21/2024 09:09:08 07/21/1907/21/2024 COMP. METAB OLIC PANEL (14) ALT (SGPT) 77 IU/L 0-44 above high normal Not Available [facility] ([facility]) [address] [place], [address], 07/21/2024 09:09:08 07/21/1907/21/2024 HEMOG LOBIN A1C hemoglobin A1C 8.0 % 4.8-5. 6 above high normal Predi abete s: 5.7 - 6.4 Diabe otoniel: >6.4 Glyce shabnam contr ol for adult s with diabe otoniel: <7.0 Not Available [facility] ([facility]) [address] [place], [address], 07/21/2024 09:09:09 07/21/1907/21/2024 CBC WITH DIFFE RENTI AL/PL ATELE T WBC 7.0 x10e3 /uL 3.4-10 .8 Not Available [facility] ([facility]) [address] [place], [address], 07/21/2024 09:09:10 07/21/1907/21/2024 CBC WITH DIFFE RENTI AL/PL ATELE T RBC 5.58 x10e6 /uL 4.14-5 .80 Not Available [facility] ([facility]) [address] [place], [address], 07/21/2024 09:09:10 07/21/19 25 07/21/2024 CBC WITH DIFFE RENTI AL/PL ATELE T hemoglobin 16.3 g/dL 13.0-1 7.7 Not Available [facility] ([facility]) [address] [place], [address], 07/21/2024 09:09:10 07/21/1907/21/2024 CBC WITH DIFFE RENTI AL/PL ATELE T hematocrit 49.3 % 37.5-5 1.0 Not Available [facility] ([facility]) [address] [place], [address], 07/21/2024 09:09:10 07/21/1907/21/2024 CBC WITH DIFFE RENTI AL/PL ATELE T MCV 88 fL 79-97 Not Available [facility] ([facility]) [address] [place], [address], 07/21/2024 09:09:10 07/21/1907/21/2024 CBC WITH DIFFE RENTI AL/PL ATELE T MCH 29.2 pg 26.6-3 3.0 Not Available [facility] ([facility]) [address] [place], [address], 07/21/2024 09:09:10 07/21/1907/21/2024 CBC WITH DIFFE RENTI AL/PL ATELE T MCHC 33.1 g/dL 31.5-3 5.7 Not Available [facility] ([facility]) [address] [place], [address], 07/21/2024 09:09:10 07/21/1907/21/2024 CBC WITH DIFFE RENTI AL/PL ATELE T RDW 13.7 % 11.6-1 5.4 Not Available [facility] ([facility]) [address] [place], [address], 07/21/2024 09:09:10 07/21/1907/21/2024 CBC WITH DIFFE RENTI AL/PL ATELE T platelets 231 x10e3 /uL 150-45 0 Not Available [facility] ([facility]) [address] [facility], [place], [address], 07/21/2024 09:09:10 07/21/1907/21/2024 CBC WITH DIFFE RENTI AL/PL ATELE T neutrophils 54 % notest ab. Not Available [facility] ([facility]) [address] [facility], [place], [address], 07/21/2024 09:09:10 07/21/1907/21/2024 CBC WITH DIFFE RENTI AL/PL ATELE T lymphs 34 % notest ab. Not Available [facility] ([facility]) [address] [facility], [place], [address], 07/21/2024 09:09:10 07/21/1907/21/2024 CBC WITH DIFFE RENTI AL/PL ATELE T monocytes 8 % notest ab. Not Available [facility] ([facility]) [address] [facility], [place], [address], 07/21/2024 09:09:10 07/21/1907/21/2024 CBC WITH DIFFE RENTI AL/PL ATELE T eos 3 % notest ab. Not Available [facility] ([facility]) [address] [facility], [place], [address], 07/21/2024 09:09:10 07/21/1907/21/2024 CBC WITH DIFFE RENTI AL/PL ATELE T basos 1 % notest ab. Not Available [facility] ([facility]) [address] [facility], [place], [address], 07/21/2024 09:09:10 07/21/19 25 07/21/2024 CBC WITH DIFFE RENTI AL/PL ATELE T neutrophils (absolute) 3.8 x10e3 /uL 1.4-7. 0 Not Available [facility] ([facility]) [address] [facility], [place], [address], 07/21/2024 09:09:10 07/21/19 25 07/21/2024 CBC WITH DIFFE RENTI AL/PL ATELE T lymphs (absolute) 2.4 x10e3 /uL 0.7-3. 1 Not Available [facility] ([facility]) [address] [facility], [place], [address], 07/21/2024 09:09:10 07/21/1907/21/2024 CBC WITH DIFFE RENTI AL/PL ATELE T monocytes(ab solute) 0.6 x10e3 /uL 0.1-0. 9 Not Available [facility] ([facility]) [address] [facility], [place], [address], 07/21/2024 09:09:10 07/21/1907/21/2024 CBC WITH DIFFE RENTI AL/PL ATELE T eos (absolute) 0.2 x10e3 /uL 0.0-0. 4 Not Available [facility] ([facility]) [address] [facility], [place], [address], 07/21/2024 09:09:10 07/21/1907/21/2024 CBC WITH DIFFE RENTI AL/PL ATELE T baso (absolute) 0.0 x10e3 /uL 0.0-0. 2 Not Available [facility] ([facility]) [address] [place], [address], 07/21/2024 09:09:10 07/21/1907/21/2024 CBC WITH DIFFE RENTI AL/PL ATELE T immature granulocytes 0 % notest ab. Not Available [facility] ([facility]) [address] [place], [address], 07/21/2024 09:09:10 07/21/19 25 07/21/2024 CBC WITH DIFFE RENTI AL/PL ATELE T immature grans (abs) 0.0 x10e3 /uL 0.0-0. 1 Not Available [facility] ([facility]) [address] [facility], [place], [address], 07/21/2024 09:09:10 08/25/19 24 08/25/2023 elect rocar diogr am No observ ation record ed. [facility] In-Office Order Internal Use Only DO Not Attach Compendium DO Not Attach Compendium, Do Not Delete/merge, 08/25/2023 12:33:59 08/25/19 24 08/25/2023 elect rocar diogr am No observ ation record ed. [facility] In-Office Order Internal Use Only DO Not Attach Compendium DO Not Attach Compendium, Do Not Delete/merge, 08/25/2023 12:00:25 08/25/19 24 08/25/2023 XR, chest , 2 view No observ ation record ed. [facility] [address], [place], [address], 08/25/2023 13:17:18 12/24/19 elect rocar diogr am No observ ation record ed. [facility] In-Office Order Internal Use Only DO Not Attach Compendium DO Not Attach Compendium, Do Not Delete/merge, 12/23/2024 11:14:59 12/24/19 25 12/23/2024 elect rocar diogr am No observ ation record ed. [facility] In-Office Order Internal Use Only DO Not Attach Compendium DO Not Attach Compendium, Do Not Delete/merge, 12/23/2024 11:47:18 01/01/20 25 12/31/2024 imagi ng/di agnos tic resul t No observ ation record ed. [facility] [address], [place], [address], 12/31/2024 11:50:40 01/01/2012/31/2024 tread mill nucle ar stres s test (PROC ) No observ ation record ed. [facility] [address], [place], [address], 12/31/2024 12:14:23 Result Notes None recorded. Problems Name Problem SNOMED Code Status Onset Date Resolution Date Notes Provider Name and Address Organization Details Recorded Time Essential hypertension 83558367 Active 2023 [place], [place] - [facility] 5 11:42:37 Hyperlipidemia 62994852 Active 2023 Ayanna Garcias MD Attn: Kat king,[address] [place], [place], [address] [place] [address] 2, [facility] - [facility] 4 11:43:40 Type 2 diabetes mellitus 03203540 Active 2023 Ayanna Garcias MD Attn: Kat king,[address] [place], [place], [address] [place] [address] 2, [place] - [facility] 4 11:43:41 Chronic rhinitis 66786765 Active 2023 Ayanna Garcias MD Attn: Kat king,[address] [place], [place], [address] [place] [address] 2, [place] - [facility] 4 11:43:43 Gastroesophage al reflux disease without esophagitis 499294048 Active 2023 Ayanna Garcias MD Attn: Kat king,[address] [place], [place], [address] [place] [address] 2, [place] - [facility] 4 11:44:09 Electrocardiog micheal abnormal 418028615 Active 2024 [place], [place] - [facility] 5 11:41:54 Problem Notes None recorded. Procedures Surgical History Date Name Laterality Status Provider Name and Address Organization Details Recorded Time Tonsillectomy completed Bruce Macario [place] - [facility] 05/05/2023 11:23:32 Cholecystectomy completed Bruce Macario [place] - [facility] 05/05/2023 11:23:54 Vasectomy completed Bruce Macario [place] - [facility] 05/05/2023 11:24:01 Imaging Results None recorded. Procedure Notes None recorded. Medical Equipment None Reported. Allergies Allergen ID Allergen Name Allergen Category Reaction Reaction Severity Criticality Documentation Date Start Date Code Code System Note Provider Name and Address Organization Details Recorded Time 636415 Compazine medicatio n seizure Not available Not available 05/05/202348907 6 RxNorm Bruce Macario MA null, [place] - [facility] 11:21:24 Medications Name Sig Start Date Stop Date Status Note LastModified by Organization Details LastModified Time doxycycli ne hyclate 100 mg capsule TAKE 1 CAPSULE BY MOUTH TWICE DAILY FOR 7 DAYS 12/23 completed Not Available Not Available Not Available carvedilo l 12.5 mg tablet TAKE 1/2 TABLET BY MOUTH TWICE DAILY active Not Available Not Available No t Available atorvasta tin 10 mg tablet TAKE 1 TABLET BY MOUTH EVERY DAY active Not Available Not Available No t Available azithromy alma 250 mg tablet TAKE 2 TABLETS (500 MG) BY ORAL ROUTE ONCE DAILY FOR 1 DAY THEN 1 TABLET (250 MG) BY ORAL ROUTE ONCE DAILY FOR 4 DAYS 06/18 completed Not Available Not Available Not Available lisinopri l 20 mg tablet TAKE 1 TABLET BY MOUTH EVERY DAY 12/23 completed changed to Losartan /HCTZ by Dr Garcias at visit 12/23/24 . Not Available Not Available Not Available prednison e 20 mg tablet TAKE 2 TABLETS BY MOUTH EVERY DAY FOR 3 DAYS 06/18 completed Not Available Not Available Not Available ciproflox acin 500 mg tablet TAKE 1 TABLET BY MOUTH TWICE DAILY FOR 7 DAYS 08/24 completed Not Available Not Available Not Available pantopraz ole 40 mg tablet,de layed release TAKE 1 TABLET BY MOUTH EVERY DAY 2024 active Not Available Not Available Not Avai lable clotrimaz ole-betam ethasone 1 %-0.05 % topical cream APPLY TO FACE TWICE DAILY FOR 3 WEEKS 12/23 completed Not Available Not Available Not Available lisinopri l 10 mg tablet TAKE 1 TABLET BY MOUTH DAILY 09/15 completed Not Available Not Available Not Available monteluka st 10 mg tablet TAKE 1 TABLET BY MOUTH DAILY active Not Available Not Available No t Available timolol maleate 0.5 % eye drops INSTILL 1 DROP INTO BOTH EYES EVERY MORNING 12/23 completed Not Available Not Available Not Available losartan 50 mg-hydroc hlorothia zide 12.5 mg tablet Take 1 tablet every day by oral route. 2024 active Not Available Not Available Not Avai lable metformin ER 500 mg tablet,ex tended release 24 hr TAKE 2 TABLETS BY MOUTH DAILY active Not Available Not Available No t Available metformin ER 500 mg 24 hr tablet,ex tended release (gastric retention ) TAKE 2 TABLETS BY MOUTH DAILY 06/18 completed Not Available Not Available Not Available Ozempic 1 mg/dose (4 mg/3 mL) subcutane ous pen injector INJECT 1MG UNDER THE SKIN EVERY WEEK 04/22 completed Increase d dose Not Available Not Available Not Available Ozempic 2 mg/dose (8 mg/3 mL) subcutane ous pen injector INJECT 2MG UNDER THE SKIN ONCE A WEEK active Not Available Not Available No t Available Vitals Date Recorded Body weight Body mass index (BMI) Body height Oxygen saturation Heart rate Provider Name and Address Organization Details Last Updated DateTime 05/05/2023 585151.0 5 g 37.7 kg/m2 175.26 cm 95 % 79 /min Bruce Macario MA [facility] 4 11:34:25 Date Recorded Body height Body mass index (BMI) Body weight Heart rate Oxygen saturation Systolic And Diastolic Provider Name and Address Organization Details Last Updated DateTime 5 175.26 cm 36 kg/m2 709255. 18 g 78 /min 97 % 138/72 mm[Hg] Bela Delgado MA [facility] 5 10:06:43 Date Recorded Body height Body mass index (BMI) Body weight Heart rate Oxygen saturation Systolic And Diastolic Provider Name and Address Organization Details Last Updated DateTime 4 175.26 cm 36.8 kg/m2 965581. 5 g 72 /min 95 % 152/98 mm[Hg] Bruce Macario MA [facility] 4 10:50:52 Date Recorded Body height Body mass index (BMI) Body weight Heart rate Oxygen saturation Systolic And Diastolic Provider Name and Address Organization Details Last Updated DateTime 5 175.26 cm 36.7 kg/m2 135768. 7 g 73 /min 96 % 144/104 mm[Hg] Sandhya Cleaning [place] - [facility] 5 10:22:35 Date Recorded Body height Body mass index (BMI) Body weight Heart rate Oxygen saturation Systolic And Diastolic Provider Name and Address Organization Details Last Updated DateTime 4 175.26 cm 36.8 kg/m2 784716. 14 g 74 /min 97 % 124/62 mm[Hg] Bela Delgado [place] - [facility] 4 09:53:12 Social History Question Answer Notes LastModified by Organizat ion Details LastModified Time Tobacco Smoking Status Never Smoker Bruce Macario MA [facility] 05/05/2023 11:22:16 Do You Have An Advance Directive? No Information n ot available 05/05/2023 Are You Blind Or Do You Have Difficulty Seeing? No Information n ot available 05/05/2023 What Is Your Level Of Caffeine Consumption? Moderate Information not available 05/05/2023 In The 14 Days Before Symptom Onset, Have You Had Close Contact With A Laboratory-confirm ed COVID-19 While That Case Was Ill? No Information n ot available 01/05/2024 In The 14 Days Before Symptom Onset, Have You Had Close Contact With A Person Who Is Under Investigation For COVID-19 While That Person Was Ill? No Information not available 01/05/2024 Have You Been To An Area Known To Be High Risk For COVID-19? No Information not available 01/05/2024 Are You Deaf Or Do You Have Serious Difficulty Hearing? No Information not available 05/05/2023 What Type Of Diet Are You Following? REGULAR Information n ot available 05/05/2023 Are There Any Guns Present In Your Home? No Information not available 05/05/2023 What Was The Date Of Your Most Recent Tobacco Screening? 12/23/2024 [email or web address] Information not available 12/23/2024 What Is Your Relationship Status? Information not available 05/05/2023 Do You Use Your Seat Belt Or Car Seat Routinely? Yes Information not available 05/05/2023 Do You Have Smoke And Carbon Monoxide Detectors In Your Home? Yes Information not available 05/05/2023 Do You Use Sunscreen Routinely? No Information not available 05/05/2023 Has Tobacco Cessation Counseling Been Provided? No Information not available 05/05/2023 Sex: Male Functional Status Question Answer Note LastModified by Organizat ion Details LastModified Time Do you use any illicit or recreational drugs? No Information not available 05/05/2023 Do you or have you ever used any other forms of tobacco or nicotine? No Information not available 05/05/2023 What is your level of alcohol consumption? Occasional Information not available 05/05/2023 Are you currently employed? Yes Information not available 05/05/2023 Are you able to care for yourself independently? Yes Information not available 05/05/2023 What is your occupation? [employer] Information not available 05/05/2023 What is your exercise level? Occasional Information not available 05/05/2023 Mental Status Question Answer Note LastModified by Organization D etails LastModified Time Do you feel stressed (tense, restless, nervous, or anxious, or unable to sleep at night)? [id number] Information not available 05/05/2023 Family History Relationship Description Onset Age of this Age Resolved Age Notes LastModified by Organization Details LastModified Time Father Diabetes mellitus [email or web address] Not available 04/11 11:21:39 Father Hypercholest erolemia bandersonma Not available 04/11 11:21:49 Father Hypertensive disorder bandersonma Not available 04/11 11:21:57 Brother Hypercholest erolemia bandersonma Not available 04/11 11:21:49 Medical History Condition Response Coronary Artery Disease N Other N Atrial Fibrillation N High Blood Pressure Y Thyroid Problems N Kidney or Bladder Problems N Depression N COPD N Blood Clots N GI Problems N Skin Problems N Anemia N Heart Attack ([place]) N Diabetes Y Anxiety Disorder N Muscle, Joint, or Bone Problems N Seizures/Epilepsy N Acid Reflux (GERD) N Cancer N Stroke N Allergies N Asthma N High Cholesterol Y Hepatitis N Liver Disease N Headaches N Osteoporosis N Heart Failure N Immunizations Vaccine Type Date Status Note Provider Nam e and Address Organization Details Recorded Time Influenza, split virus, quadrivalent, preservative 9 completed [place], [place] - [facility] 08/25/2023 10:47:14 Influenza, split virus, quadrivalent, preservative 1 completed [place] [facility] 08/25/2023 10:47:14 Influenza, split virus, quadrivalent, preservative 8 completed [place] [facility] 08/25/2023 10:47:14 Influenza, split virus, quadrivalent, preservative 7 [place] [facility] 08/25/2023 10:47:14 COVID-19, mRNA, LNP-S, PF, 30 mcg/0.3 mL dose 1 completed [place] [facility] 08/25/2023 10:47:14 COVID-19, mRNA, LNP-S, PF, 30 mcg/0.3 mL dose 1 completed [place] [facility] 08/25/2023 10:47:14 COVID-19, mRNA, LNP-S, PF, 30 mcg/0.3 mL dose 1 completed [place] [facility] 08/25/2023 10:47:14 COVID-19, mRNA, LNP-S, PF, 30 mcg/0.3 mL dose, rene-sucrose 2 completed [place] [facility] 08/25/2023 10:47:14 Tdap 6 [place] [facility] 08/25/2023 10:47:14 Pneumococcal conjugate PCV 13 6 [place] [facility] 08/25/2023 10:47:14 Past Encounters Encounter ID Performer Location Encounter Start Date Encounter Closed Date Diagnosis/Indication Diagnosis SNOMED-CT Code Diagnosis ICD10 Code Diagnosis IMO Codes Diagnosis Note [id number] Aynana Garcias MD [facility] [employer] [facility] [place] [address] [place] [address] 05/05/2023 11:02:42 05/05/2023 12:08:50 Essential hypertension 27855667 I10 Hyperlipidemia 21384715 E78.5 Type 2 lester betes mellitus 52028528 E11.9 Chronic rhinitis 2311451 6 J31.0 Gastroesop hageal reflux disease without esophagitis 950942450 K21.9 Screening for malignant neoplasm of prostate 136978112 Z12.5 [id number] Ayanna Garcias MD [facility] [employer] [facility] [place] [address] [place] [address] 08/25/2023 10:18:28 08/25/2023 11:58:41 Obesity 065071217 E66.8 Chest pain 67848586 R07. 9 Chronic rhinitis 5208422 6 J31.0 Essential hypertension 59183784 I10 Gastroesop hageal reflux disease without esophagitis 414951386 K21.9 Hyperlipidemia 71701817 E78.5 Type 2 lester betes mellitus 50864519 E11.9 [id number] Ayanna Garcias MD [facility] [employer] [address] [place] [address] 01/05/2024 09:41:31 01/05/2024 10:14:44 Obesity 335650002 E66.9 Type 2 lester betes mellitus 47848448 E11.9 Essential hypertension 36158343 I10 Chronic rhinitis 7721788 6 J31.0 Gastroesop hageal reflux disease without esophagitis 039575400 K21.9 Hyperlipidemia 28853421 E78.5 [id number] Ayanna Garcias MD [facility] [employer] [address] [place] [address] 07/01/2024 09:48:24 07/01/2024 10:52:54 Obese class II 1741966990 83490 E66.812 4456126049 Essential hypertension 02749664 I10 Hyperlipidemia 64140771 E78.5 Type 2 lester betes mellitus 16310309 E11.9 Gastroesop hageal reflux disease without esophagitis 141256249 K21.9 [id number] Ayanna Garcias MD [facility] Ramonita Segal [address] [place] [address] 12/23/2024 10:10:07 12/23/2024 11:57:23 Obese class II 2978195371 24190 E66.812 E66.3 5400380935 Essential hypertension 84570136 I10 824280 Type 2 lester betes mellitus 26566525 E11.9 Electrocar diogram abnormal 888106686 R94.31 726251 Health Concerns Section Related Observation LastModified by Organization Detai ls LastModified Time None Recorded Concern Status LastModified by Organization Details LastModified Time None Recorded Advance Directives Directive N: Payers Insurance Date Sequence Insurance Name Policy Number Policy Carcamo Covered Member ID Carcamo Member ID Guarantor Name 05/05/2023 1 *SELF PAY* Br michelle Cao 05/05/2023 1 [place] 112 Indira Narinder Wilgus [id number] Eligio Jenarogus 12/28/2024 1 [place] 112 Indira J Wilgus [id number] Eligio Cao Notes Date Note Type Note Provider Name and Address Organization Details Recorded Time 05/05/2023 text/html Hypertension no headache no dizziness. Hyperlipidemia trying to follow a low-fat diet not really losing weight. Diabetes no polyphagia or polydipsia. Chronic rhinitis stable on his medications. GERD a little bit up since his trip to [place]. Ayanna Garcias MD Attn: Accounting[address] [place], [address], [facility] - [facility] 05/11/2023 21:46:29 08/25/2023 text/html Hypertension no headache no dizziness. Hyperlipidemia trying to follow a low-fat diet not really losing weight. Diabetes no polyphagia or polydipsia. Chronic rhinitis . Woke up with a little bit of pain dull right upper chest no cough or wheezing has not really tight whole lot for it does nothing pleuritic no diaphoresis it has not exertional it is [id number] Ayanna Garcias MD Attn: Accounting[address] [place], [address], [place] [facility] 08/25/2023 22:59:51 01/05/2024 text/html hypertension blood pressure is controlled. GERD no nausea no vomiting hyperlipidemia he states that he has had little bit of rough go movements mom here from [place] has been having some trouble with that in his dietary indiscretions have been up just a little bit his rhinitis has been stable Ayanna Garcias MD Attn: Accounting[address] [facility], [place], [address], [facility] - [facility] 01/05/2024 22:26:45 07/01/2024 text/html hypertension blood pressure is controlled. GERD no nausea no vomiting hyperlipidemia he states that diabetes no polyphagia or polydipsia Ayanna Garcias MD Attn: Accounting[address] [facility], [place], [address], [facility] - [facility] 07/03/2024 22:12:56 12/23/2024 text/html Hypertension no chest pain shortness of breath but he is having elevated blood pressure readings. GERD no nausea no vomiting. Diabetes no polyphagia or polydipsia Ayanna Garcias MD Attn: Accounting[address] [facility], [place], [address], [place] [facility] 12/26/2024 22:50:44
--- OUTSIDE RECORDS SUMMARY | 2024-12-31 12:49 | XMS_ITS | Continuity of Care Document ---
Author Organization [place], [facility] Address [address] [place] [address] Care Team Providers Care Senior Technical Analyst Name Role Phone AYANNA GARCIAS Primary Care Provider JAVIER MOORE JR Private Chef [phone] [facility] Chip Loft Worker Assessment Encounter Date Assessment Date Assessment LastModified by Organization Details LastModified Time 12/23/2024 12/23/2024 EKG does have some baseline artifact but appears to be a sinus rhythm maybe some T-wave flattening anterior precordial leads and high lateral leads again there are some irregularities due to artifact DC (lisinopril. Check CBC CMP lipid high sensitivity CRP and lipoprotein a Lexiscan complete echo cardiology consultation see me in 3 weeks. [email or web address] Not available 12/26/2024 22:50:16 Plan of Treatment Reminders Order Date Submit Date Provider Last Modified By Organization Details Last Modified Time Details Appointments ANY 15 2024 02:00P Brittany Garcias MD Not available Not available Not available Lab HbA1c (hemoglob in A1c), blood 2024 025 [email or web address] [facility] (Centralized Electronic Ordering - All Locations), Patient Can Go To The Location Of Their Choice, [id number] 12/23/2024 15:05:36 CRP, high sensitivi ty, serum or plasma 2024 025 [facility] (Centralized Electronic Ordering - All Locations), Patient Can Go To The Location Of Their Choice, [id number] 12/23/2024 15:05:36 lipoprote in a, qn, serum 2024 [email or web address] [facility] (Centralized Electronic Ordering - All Locations), Patient Can Go To The Location Of Their Choice, [id number] 12/23/2024 15:05:36 CMP, serum or plasma 2024 [email or web address] [facility] (Centralized Electronic Ordering - All Locations), Patient Can Go To The Location Of Their Choice, [id number] 12/23/2024 15:05:36 lipid panel, serum 2024 [facility] (Centralized Electronic Ordering - All Locations), Patient Can Go To The Location Of Their Choice, [id number] 12/23/2024 15:05:36 CBC w/ auto diff 2024 [email or web address] [facility] (Centralized Electronic Ordering - All Locations), Patient Can Go To The Location Of Their Choice, [address] 12/23/2024 15:05:36 Referral cardiolog ist referral 2024 [email or web address] [facility] [place] [address], [address], [address], 12/23/2024 15:05:36 Procedures treadmill nuclear stress test (PROC) 2024 [facility] [place], [facility] [address], [address] [facility], [place], [address], 12/31/2024 12:14:23 Surgeries None recorded. Imaging US, echocardi ogram 2024 [facility] [place] [address], [address], [place], [address], 12/24/2024 09:10:35 electroca rdiogram 2024 [email or web address] In-Office Order, Internal Use Only DO Not Attach Compendium DO Not Attach Compendium, Do Not Delete/merge, [id number] 12/23/2024 15:05:36 Medication Orders losartan 50 mg-hydroc hlorothia zide 12.5 mg tablet 2024 025 [email or web address] [id number], [address], [place], [place], [id number], 12/23/2024 15:05:36 Patient TargetsNo targets recorded. 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 MARU In-Office Order Internal Use Only DO Not Attach Compendium DO Not Attach Compendium, Do Not Delete/merge, [id number] 12/23/2024 11:14:59 12/24/1912/23/2024 elect rocar diogr am No observ ation record ed. MARU In-Office Order Internal Use Only DO Not Attach Compendium DO Not Attach Compendium, Do Not Delete/merge, [id number] 12/23/2024 11:47:18 01/01/2012/31/2024 imagi ng/di agnos tic resul t No observ ation record ed. [facility] [address], [place], [address], 12/31/2024 11:50:40 01/01/2012/31/2024 tread mill nucle ar stres s test (PROC ) No observ ation record ed. [facility] [address], [place], [address], 12/31/2024 12:14:23 Result Notes None recorded. Problems Name Problem SNOMED Code Status Onset Date Resolution Date Notes Provider Name and Address Organization Details Recorded Time Essential hypertension 84210919 Active 2023 ClarHUMBLE [place], [place] - [facility] 5 11:42:37 Hyperlipidemia 32758394 Active 2023 Ayanna Garcias MD Attn: Kat king[address] [place], [address], [place] [facility] 4 11:43:40 Type 2 diabetes mellitus 45850703 Active 2023 Ayanna Garcias MD Attn: Kat king,[address] [place], [place], [address] [place] [address], [place] [facility] 4 11:43:41 Chronic rhinitis 07121988 Active 2023 Ayanna Garcias MD Attn: Kat king[address] [place], [place], [address] [place] [address], [place] [facility] 4 11:43:43 Gastroesophage al reflux disease without esophagitis 964300512 Active 2023 Ayanna Garcias MD Attn: Sanjulupillo king,[address] [place], [address], [place] [facility] 4 11:44:09 Electrocardiog micheal abnormal 989266720 Active 2024 HUM[place], [place] - [facility] 5 11:41:54 Problem Notes None recorded. Procedures Surgical History Date Name Laterality Status Provider Name and Address Organization Details Recorded Time Tonsillectomy completed HUMBLE [place] - [place] 05/05/2023 11:23:32 Cholecystectomy completed Bruce Macario MA [place] - [facility] 05/05/2023 11:23:54 Vasectomy completed Bruce Macario MA [place] - [facility] 05/05/2023 11:24:01 Imaging Results None recorded. Procedure Notes None recorded. Medical Equipment None Reported. Allergies Allergen ID Allergen Name Allergen Category Reaction Reaction Severity Criticality Documentation Date Start Date Code Code System Note Provider Name and Address Organization Details Recorded Time 625858 Compazine medicatio n seizure Not available Not available 05/05/202382935 6 RxNorm [place], [place] - [facility] 4 11:21:24 Medications Name Sig Start Date Stop [...] No t Available Vitals Date Recorded Body height Body mass index (BMI) Body weight Heart rate Oxygen saturation Systolic And Diastolic Provider Name and Address Organization Details Last Updated DateTime 175.26 cm 36.7 kg/m2 473518. 7 g 73 /min 96 % 144/104 mm[Hg] Sandhya Cleaning MA [facility] 10:22:35 Social History Question Answer Notes LastModified by Organizat ion Details LastModified Time Tobacco Smoking Status Never Smoker Bruce Macario MA [facility], [facility] 05/05/2023 11:22:16 Do You Have An Advance [...] anxious, or unable to sleep at night)? [id number] Information not available 05/05/2023 Family History Relationship [...] Skin Problems N Anemia N Heart Attack (CA) N Diabetes Y Anxiety Disorder N Muscle, Joint, or Bone Problems N Seizures/Epilepsy N Acid Reflux (GERD) N Cancer N Stroke N Allergies N Asthma N High Cholesterol Y Hepatitis N Liver Disease N Headaches N Osteoporosis N Heart Failure N Immunizations Vaccine Type Date Status Note Provider Nam e and Address Organization Details Recorded Time Influenza, split virus, quadrivalent, preservative 9 completed Bruce Macario [place], [place] [facility] 08/25/2023 10:47:14 Influenza, split virus, quadrivalent, preservative 1 completed Bruce Macario [place], [place] [facility] 08/25/2023 10:47:14 Influenza, split [...] [place] [facility] 08/25/2023 10:47:14 Tdap 6 completed HUMBLE [place], [place] [facility] 08/25/2023 10:47:14 Pneumococcal conjugate PCV 13 6 completed Bruce Macario MA [facility], [place] - [facility] 08/25/2023 10:47:14 Past Encounters Encounter ID Performer Location Encounter Start Date Encounter Closed Date Diagnosis/Indication Diagnosis SNOMED-CT Code Diagnosis ICD10 Code Diagnosis IMO Codes Diagnosis Note [id number] Ayanna Garcias MD [facility] - Ramonita Segal [address] [place] [address] 12/23/2024 10:10:07 12/23/2024 11:57:23 Obese class II 0270527163 48070 E66.812 E66.3 9071491276 Essential hypertension 52161578 I10 982849 Type 2 lester betes mellitus 77041037 E11.9 Electrocar diogram abnormal 331674826 R94.31 058215 Health Concerns Section Related Observation LastModified by Organization Detai ls LastModified Time None Recorded Concern Status LastModified by Organization Details LastModified Time None Recorded Payers Encounter Date Sequence Insurance Name Policy Number Policy Carcamo Covered Member ID Carcamo Member ID Guarantor Name 12/23/2024 1 [place] 112 Indira Cao [id number] Eligio Cao Notes Date Note Type Note Provider Name and Address Organization Details Recorded Time 12/23/2024 text/html Hypertension no chest pain shortness of breath but he is having elevated blood pressure readings. GERD no nausea no vomiting. Diabetes no polyphagia or polydipsia Ayanna Garcias MD Attn: Accounting[address] [place], [address], [facility] - [facility] 12/26/2024 22:50:44
[2024-12-31] MEDS: ASPIRIN 325 MG TABLET PO (14:11)
[2024-12-31] MEDS: METOPROLOL TARTRATE 25 MG TABLET PO (14:12)
--- NOTE | 2024-12-31 15:20 | WPCEDHO ---
ED Hand Off Checklist All vitals saved:y IV Site documented:y All med administrations documented:y Triage Note Triage Note pt to ED from cardiology lab 12/31/24 11:12 where he was getting a stress test done, and began having chest pain and tightness that went up into his neck. patient states he' s been having recurrent chest pain occasionally. was given 1 sublingual nitro by staff with cardiology, which relieved chest pain. Allergies PROCHLORPERAZINE EDISYLATE Allergy (Mild, Uncoded 03/08/22 06:59) SEIZURE PROCHLORPERAZINE MALEATE Allergy (Mild, Uncoded 03/08/22 06:59) SEIZURE Administered/Completed Medications Discontinued Medications Aspirin (Aspirin 81 Mg Chewable Tablet) 324 mg PO ONCE STA Stop: 12/31/24 11:11 Last Admin: 12/31/24 11:35 Dose: Not Given Documented By: JAY Non-Admin Reason: No Dose Required Aspirin (Aspirin 325 Mg Tablet) 325 mg PO ONCE STA Stop: 12/31/24 13:25 Last Admin: 12/31/24 14:11 Dose: 325 mg Documented By: JAY Metoprolol Tartrate (Metoprolol Tartrate 25 Mg Tablet) 25 mg PO ONCE STA Stop: 12/31/24 13:25 Last Admin: 12/31/24 14:12 Dose: 25 mg Documented By: JAY Interventions/Assessments IV / Saline Lock, Insert Start: 12/31/24 11:10 Freq: STAT Status: Active Protocol: Document 12/31/24 11:57 [facility] (Rec: 12/31/24 11:57 [facility] [id number]) IV Assessment Peripheral Access Left Antecubital IV Catheter Access Initiated IV Insertion Date 12/31/24 IV Insertion Time 11:57 Catheter Gauge 18 IV Insertion 1 Attempts Ultrasound Used for No Placement IV Site Assessment WNL IV Care and WNL,Access Locked Maintenance PA: Cardiovascular Assessment Start: 12/31/24 11:07 Freq: Status: Active Protocol: Document 12/31/24 11:27 [facility] (Rec: 12/31/24 11:28 ELB [id number]) Cardiovascular Assessment Cardiovascular Chest Pain Symptoms Skin Description Normal Color Heart Sounds Normal Jugular Vein None Distention Rhythm/Strength Monitor EKG Rythm Sinus Tachycardia Chest Pain Assessment Chest Pain Intensity 1 Description and Pressure,Tightness Symptoms PA: Respiratory Assessment Start: 12/31/24 11:07 Freq: Status: Active Protocol: Document 12/31/24 11:27 ELB (Rec: 12/31/24 11:28 ELB [id number]) Respiratory Assessment Symptoms None Effort Normal Pattern Regular Depth Normal Chest Expansion Symmetrical Adult Capillary Normal/Less than 2 Seconds Refill Throughout Phase Inspiratory & Expiratory Lung Sounds Clear Cough Description None Oxygen Delivery Oxygen Delivery Room Air Last Vital Signs Pulse Rate 86 12/31/24 15:15 Respiratory Rate 19 12/31/24 15:15 Pulse Oximetry 95 12/31/24 15:15 Blood Pressure 144/95 H 12/31/24 15:15 Blood Pressure Mean 110 12/31/24 15:15 Oxygen Delivery Room Air 12/31/24 11:27 Weight 113.18 kg 12/31/24 11:12 Last Result - Abnormals Only Sodium 134 mmol/L (137-145) L 12/31/24 11:54 Glucose 235 mg/dL (65-110) H 12/31/24 11:54 AST 60 U/L (17-59) H 12/31/24 11:54 ALT 105 U/L (6-50) H 12/31/24 11:54 Most Recent Suicide Severity Rating Suicide Severity Rating NO RISK INDICATED 12/31/24 11:12
[2024-12-31] MEDS: ACETAMINOPHEN 325 MG TABLET 650 MG PO (16:22)
[2024-12-31 18:27] LABS: Troponin I < 0.012 ng/mL (0.000-0.034)
--- NOTE | 2024-12-31 20:13 | ECG_ITS ---
Test Date: 2024-12-31 20:20:47 Measurements Intervals [place] Rate: 79 P: 15 FL: 120 QRS: -6 QRSD: 107 T: 25 QT: 397 QTc: 457 Interpretive Statements SINUS RHYTHM INCOMPLETE RIGHT BUNDLE BRANCH BLOCK [90+ ms QRS DURATION, TERMINAL R IN V1/V2, 40+ ms S IN I/aVL/V4/V5/V6] NONSPECIFIC T-WAVE ABNORMALITY Compared to ECG 12/31/2024 11:22:04 No significant changes Electronically Signed On 12-31-2024 20:36:03 PROTECTIVE SERVICE SPECIALIST by Za Ribeiro M.D.
[2024-12-31] MEDS: TIMOLOL MALEATE 0.5% OP SOLN 5 ML BOTTLE 1 DROP EACH EYE (20:27)
[2024-12-31 20:51] LABS: Troponin I < 0.012 ng/mL (0.000-0.034)
[2024-12-31] MEDS: ENOXAPARIN 120 MG/0.8 ML SYRINGE 112 MG SUB-Q (21:13)
[2025-01-01] VITALS (16 sets, daily range): BP systolic 115–140; BP diastolic 73–94; PULSE 69–93; RESP 14–18; TEMP 36.6–37; O2SAT 93–97
--- NOTE | 2025-01-01 01:39 | PM.IMHP ---
H&P: HPI History of Present Illness Date/Time: 12/31/24 1730 Chief Complaint: Chest pain Narrative: 54-year-old male past medical history of DM 2, HTN, hyperlipidemia, GERD presents to the ED on 12/31/2024 due to having chest pain while undergoing a cardiac stress test. Sublingual nitro given in the office before patient arrived. Patient was asymptomatic by the time he arrived to the ED. patient states he has had intermittent chest tightness for the past 3 weeks that occurs with exertion and resolves with rest. Patient states his primary care provider referred him for a cardiac stress test due to a recent increase in his blood pressure and a strong family history of cardiac disease. Patient denies shortness of breath, diaphoresis or radiation of pain. He describes the pain is at tight, dull ache in the lower chest. Heart score 4. Initial vital signs 140/95, HR 93, respirations 16, temperature 98.4?, 97% on room air Labs significant for sodium 134, glucose 235, AST 60, ALT 105. Troponins negative. EKG reveals sinus rhythm and incomplete right bundle-branch block. Chest x-ray with no acute cardiopulmonary findings. Review of Systems Review of Systems: All systems reviewed & are unremarkable except as noted in HPI and below PMFSH Past Medical History Medical History Obesity Glaucoma Diabetes HTN (hypertension) Hypercholesterolemia GERD (gastroesophageal reflux disease) Family History Family History Grandparent ETOH abuse Myocardial infarct Father High cholesterol Father Diabetes type 2 Father H/O heart artery stent Father Hypertension Other CAD (coronary artery disease) Myocardial infarct S/P CABG (coronary artery bypass graft) Father CAD (coronary artery disease) Father No problems noted. Social History Social History Smoking status: Never smoker Alcohol intake: current Drinks per week: 3 Substance use: never Substance use type: does not use Lack of Transportation: No Lack of Food: Never True Current Housing: I Have Housing Concerned About Future Housing: No Difficulty Paying Gas/Electric Bills: No Difficulty Paying for Meds: No Currently Unemployed: No Education: Bachelor's Degree Difficulty w/ Childcare or Family Care: No Living arrangements: other Additional living arrangements comments: With Spiritual care concerns: No Meds Home Medications and Allergies Home Medications ?Medication ?Instructions ?Recorded ?Confirmed ?Type atorvastatin 10 mg tablet 10 mg PO DAILY 02/28/22 12/31/24 History metformin 500 mg tablet,extended 500 mg PO DAILY 02/28/22 12/31/24 History release 24 hr montelukast 10 mg tablet 10 mg PO DAILY 02/28/22 12/31/24 History pantoprazole 40 mg tablet,delayed 40 mg PO DAILY 02/28/22 12/31/24 History release semaglutide 0.25 mg or 0.5 mg (2 0.5 mg subcut WEEKLY 02/28/22 12/31/24 History mg/1.5 mL) subcutaneous pen injector (Printed Piece) timolol maleate 0.5 % eye drops 1 drp EACH EYE DAILY 02/28/22 12/31/24 History carvedilol 12.5 mg tablet 6.25 mg PO Q12H 12/31/24 12/31/24 History losartan 50 mg-hydrochlorothiazide 1 tablet PO DAILY 12/31/24 12/31/24 History 12.5 mg tablet psyllium husk See Rx Instructions PO DAILY 12/31/24 12/31/24 History Allergies Allergy/AdvReac Type Severity Reaction Status Date / Time PROCHLORPERAZINE EDISYLATE Allergy Severe SEIZURE Uncoded 12/31/24 16:35 PROCHLORPERAZINE MALEATE Allergy Severe SEIZURE Uncoded 12/31/24 16:35 Vital Signs Vital Signs - 24 hr 12/31/24 11:12 12/31/24 11:19 12/31/24 11:27 Temperature Pulse Rate 93 95 Respiratory Rate 16 17 Blood Pressure 140/95 H Pulse Oximetry 97 95 Oxygen Delivery Room Air Room Air 12/31/24 11:34 12/31/24 11:49 12/31/24 12:15 Temperature Pulse Rate 89 96 92 Respiratory Rate 16 12 12 Blood Pressure 139/90 153/98 H 137/99 H Pulse Oximetry 94 96 94 Oxygen Delivery 12/31/24 12:30 12/31/24 14:12 12/31/24 14:15 Temperature Pulse Rate 91 78 87 Respiratory Rate 15 13 Blood Pressure 146/98 H 154/104 H Pulse Oximetry 97 94 Oxygen Delivery 12/31/24 15:15 12/31/24 16:00 12/31/24 16:00 Temperature 98.4 F Pulse Rate 86 89 88 Respiratory Rate 19 12 Blood Pressure 144/95 H 152/96 H Pulse Oximetry 95 97 Oxygen Delivery 12/31/24 18:00 12/31/24 20:00 12/31/24 20:27 Temperature Pulse Rate 85 81 79 Respiratory Rate Blood Pressure Pulse Oximetry Oxygen Delivery 12/31/24 20:31 12/31/24 22:00 01/01/25 00:00 Temperature 97.5 F L 98.5 F Pulse Rate 82 75 69 Respiratory Rate 14 16 Blood Pressure 143/92 H 129/86 Pulse Oximetry 93 96 Oxygen Delivery 01/01/25 00:00 Temperature Pulse Rate 78 Respiratory Rate Blood Pressure Pulse Oximetry Oxygen Delivery Exam Narrative: GENERAL: non-toxic appearing, in no acute distress. HEAD: Normocephalic, atraumatic. EYES: PERRLA. Conjunctivae clear. NOSE: Normal no drainage. THROAT: Pharynx clear, no exudate. NECK: Trachea midline. No adenopathy, no masses. RESPIRATORY: Airway patent, respirations nonlabored. CTA. CARDIOVASCULAR: Regular rate and rhythm w GASTROINTESTINAL: Abdomen is soft and nontender. No organomegaly. Bowel sounds normal in all quadrants. GENITOURINARY: Defer MUSCULOSKELETAL: Moves all extremities. No gross deformities. Moves all extremities well. No calf tenderness. SKIN: Warm, dry, normal color. NEURO: A&O X4. Speech clear PSYCHIATRIC: Normal interaction H&P: Results Labs Labs: Short CBC 12/31/24 Range/Units 11:54 WBC 7.5 (4.5-10.0) K/mm3 Hgb 16.5 (14.0-18.0) g/dL Hct 46.4 (42.0-52.0) % Plt Count 229 (150-375) k/mm3 BMP 12/31/24 11:54 Sodium 134 L Potassium 3.5 Chloride 99 Carbon Dioxide 26 BUN 10 Creatinine 0.71 Glucose 235 H Calcium 8.9 Cardiac Enzymes 12/31/24 12/31/24 12/31/24 Range/Units 11:54 17:39 20:18 Troponin I < 0.012 < 0.012 < 0.012 (0.000-0.034) ng/mL Liver Function 12/31/24 Range/Units 11:54 Total Bilirubin 1.1 (0.2-1.3) mg/dL AST 60 H (17-59) U/L ALT 105 H (6-50) U/L Alkaline Phosphatase 77 (38-126) U/L Albumin 4.3 (3.5-5.1) g/dL Assessment and Plan Assessment and plan (1) Angina pectoris, unstable: Code(s): I20.0 - Unstable angina Status: Acute Assessment and Plan: Patient had episode of chest pain while undergoing cardiac stress test that was relieved with sublingual nitro. Stress test results are not available for review. Patient has no known history of coronary artery disease but has several risk factors and family history. Troponins are negative. EKG reads sinus rhythm with incomplete right bundle branch block. Chest x-ray with no acute cardiopulmonary findings. -cardiology consult; awaiting recommendations -p.r.n. sublingual nitro -ASA 324 in ED -Lovenox 1 mg/kg once (2) Diabetes: Code(s): E11.9 - Type 2 diabetes mellitus without complications Status: Chronic Assessment and Plan: - hypoglycemia protocol - POC blood glucose ACHS - home medication: Metformin, Ozempic - correct regimen ordered: Low-dose correctional scale - A1C ordered with morning labs (3) Hypercholesterolemia: Code(s): E78.00 - Pure hypercholesterolemia, unspecified Status: Chronic Assessment and Plan: Continue Lipitor (4) HTN (hypertension): Code(s): I10 - Essential (primary) hypertension Status: Chronic Assessment and Plan: Continue hydrochlorothiazide, Cozaar, Coreg, lisinopril (5) GERD (gastroesophageal reflux disease): Code(s): K21.9 - Gastro-esophageal reflux disease without esophagitis Status: Chronic Assessment and Plan: Continue pantoprazole
[2025-01-01 04:48] LABS: Hematocrit 44.9 % (42.0-52.0); Hemoglobin 15.7 g/dL (14.0-18.0); Immature Granulocyte Percent A 0.3 % (0-0.5); Lymphocytes Absolute Auto 2.75 K/mm3 (0.9-3.2); Mean Corpuscular HGB Conc 35.0 g/dl (32-36); Mean Corpuscular Hemoglobin 30.2 pg (26-34); Mean Corpuscular Volume 86.3 fl (80-100); Nucleated Red Blood Cells Absolute Auto 0.000 K/mm3 (0.0-0.012); Nucleated Red Blood Cells Perc 0.0 % (0.0-0.2); Platelet Count Result 212 k/mm3 (150-375); Red Blood Count 5.20 M/mm3 (4.6-6.20); White Blood Count 6.8 K/mm3 (4.5-10.0)
[2025-01-01 05:08] LABS: Anion Gap 7 mmol/L (4-12); Blood Urea Nitrogen 11 mg/dL (9-20); Calcium 8.6 mg/dL (8.4-10.2); Carbon Dioxide 27 mmol/L (22-30); Chloride 100 mmol/L (98-107); Estimated CRCL calculation 128 ml/min; Estimated Glomerular Filt Rate > 60; Glucose 168 mg/dL (65-110); Potassium 3.3 mmol/L (3.4-5.0); Sodium 134 mmol/L (137-145)
[2025-01-01 05:14] LABS: Hemoglobin A1C 7.6 % (<5.7)
[2025-01-01] MEDS: ATORVASTATIN 10 MG TABLET PO (08:18)
[2025-01-01] MEDS: ASPIRIN 81 MG CHEWABLE TABLET PO (08:18)
[2025-01-01] MEDS: MONTELUKAST SODIUM 10 MG TABLET PO (08:19)
[2025-01-01] MEDS: PANTOPRAZOLE 40 MG TABLET PO (08:19)
[2025-01-01] MEDS: LOSARTAN POTASSIUM 50 MG TABLET PO (08:19)
[2025-01-01] MEDS: PSYLLIUM SUGAR FREE POWDER PACKET 1 PACKET PO (08:23)
--- NOTE | 2025-01-01 09:21 | PM.IMPN ---
Progress Note: A&P Assessment and Plan (1) Angina pectoris, unstable: Code(s): I20.0 - Unstable angina Status: Acute Assessment and Plan: Patient had episode of chest pain while undergoing cardiac stress test that was relieved with sublingual nitro. Stress test results are not available for review. Patient has no known history of coronary artery disease but has several risk factors and family history. Troponins are negative. EKG reads sinus rhythm with incomplete right bundle branch block. Chest x-ray with no acute cardiopulmonary findings. -cardiology consulted -p.r.n. sublingual nitro -ASA 324 in ED -Lovenox 1 mg/kg once given Cardiology plans left heart catheterization on Friday (2) Diabetes: Code(s): E11.9 - Type 2 diabetes mellitus without complications Status: Chronic Assessment and Plan: - hypoglycemia protocol - POC blood glucose ACHS - home medication: Metformin, Ozempic - correct regimen ordered: Low-dose correctional scale - A1C 7.6 (3) Hypercholesterolemia: Code(s): E78.00 - Pure hypercholesterolemia, unspecified Status: Chronic Assessment and Plan: Continue Lipitor (4) HTN (hypertension): Code(s): I10 - Essential (primary) hypertension Status: Chronic Assessment and Plan: Continue hydrochlorothiazide, Cozaar, Coreg, lisinopril (5) GERD (gastroesophageal reflux disease): Code(s): K21.9 - Gastro-esophageal reflux disease without esophagitis Status: Chronic Assessment and Plan: Continue pantoprazole Subjective Date/time seen: 01/01/25 09:21 Interval history: Patient presented with chest pain during cardiac stress test. No further chest pain. Review of Systems Review of Systems: All systems reviewed & are unremarkable except as noted in HPI and below Exam Narrative: GENERAL: non-toxic appearing, in no acute distress. HEAD: Normocephalic, atraumatic. EYES: PERRLA. Conjunctivae clear. NECK: Trachea midline. No adenopathy, no masses. RESPIRATORY: Airway patent, respirations nonlabored. CTA. CARDIOVASCULAR: Regular rate and rhythm w GASTROINTESTINAL: Abdomen is soft and nontender. No organomegaly. Bowel sounds normal in all quadrants. GENITOURINARY: Defer MUSCULOSKELETAL: Moves all extremities. No gross deformities. Moves all extremities well. No calf tenderness. SKIN: Warm, dry, normal color. NEURO: A&O X4. Speech clear PSYCHIATRIC: Normal interaction Objective Data Vital Signs Vital Signs: Vital Signs - 24 hr 12/31/24 11:12 12/31/24 11:19 12/31/24 11:27 Temperature Pulse Rate 93 95 Respiratory Rate 16 17 Blood Pressure 140/95 H Pulse Oximetry 97 95 Oxygen Delivery Room Air Room Air 12/31/24 11:34 12/31/24 11:49 12/31/24 12:15 Temperature Pulse Rate 89 96 92 Respiratory Rate 16 12 12 Blood Pressure 139/90 153/98 H 137/99 H Pulse Oximetry 94 96 94 Oxygen Delivery 12/31/24 12:30 12/31/24 14:12 12/31/24 14:15 Temperature Pulse Rate 91 78 87 Respiratory Rate 15 13 Blood Pressure 146/98 H 154/104 H Pulse Oximetry 97 94 Oxygen Delivery 12/31/24 15:15 12/31/24 16:00 12/31/24 16:00 Temperature 98.4 F Pulse Rate 86 89 88 Respiratory Rate 19 12 Blood Pressure 144/95 H 152/96 H Pulse Oximetry 95 97 Oxygen Delivery 12/31/24 18:00 12/31/24 20:00 12/31/24 20:27 Temperature Pulse Rate 85 81 79 Respiratory Rate Blood Pressure Pulse Oximetry Oxygen Delivery 12/31/24 20:31 12/31/24 22:00 01/01/25 00:00 Temperature 97.5 F L 98.5 F Pulse Rate 82 75 69 Respiratory Rate 14 16 Blood Pressure 143/92 H 129/86 Pulse Oximetry 93 96 Oxygen Delivery 01/01/25 00:00 01/01/25 02:00 01/01/25 04:00 Temperature Pulse Rate 78 72 Respiratory Rate Blood Pressure Pulse Oximetry Oxygen Delivery Room Air 01/01/25 04:00 01/01/25 04:00 01/01/25 06:00 Temperature 98.6 F Pulse Rate 90 74 89 Respiratory Rate 16 Blood Pressure 115/73 Pulse Oximetry 93 Oxygen Delivery 01/01/25 08:00 01/01/25 08:18 Temperature 97.9 F Pulse Rate 74 92 Respiratory Rate 16 Blood Pressure 130/93 H Pulse Oximetry 95 Oxygen Delivery Intake/Output Intake/Output: Intake & Output 12/29/24 12/30/24 12/31/24 01/01/25 23:59 23:59 23:59 23:59 Intake Total 480 Balance 480 Meds/Results Medications: Active Medications Generic Name Dose Route Start Last Admin Trade Name Freq PRN Reason Stop Dose Admin Acetaminophen 650 mg 12/31/24 14:02 12/31/24 16:22 Acetaminophen 325 Mg Tablet PO 650 mg Q4H PRN Administration Mild Pain (1-3) or Fever Aspirin 81 mg 01/01/25 08:00 01/01/25 08:18 Aspirin 81 Mg Chewable Tablet PO 81 mg DAILY@0800 DINO Administration Atorvastatin Calcium 10 mg 01/01/25 09:00 01/01/25 08:18 Atorvastatin 10 Mg Tablet PO 10 mg DAILY DINO Administration Carvedilol 6.25 mg 12/31/24 21:00 01/01/25 08:18 Carvedilol 6.25 Mg Tablet PO 6.25 mg Q12H DINO Administration Dextrose 12.5 gm 12/31/24 15:49 Dextrose 50% 25 Gm/50 Ml Syringe IV PUSH PRN PRN Hypoglycemia Protocol Glucagon 1 mg 12/31/24 15:49 Glucagon For Inj 1 Mg Vial IM PRN PRN Hypoglycemia Protocol Glucose 15 gm 12/31/24 15:49 Glucose Oral Gel 15 Gm Of Glucse In 37.5 Gm Tube PO PRN PRN Hypoglycemia Protocol Hydrochlorothiazide 12.5 mg 01/01/25 09:00 01/01/25 08:19 Hydrochlorothiazide 12.5 Mg Capsule PO 12.5 mg QAM DINO Administration Dextrose 1,000 mls @ 100 mls/hr 12/31/24 15:49 Dextrose 5% 1,000 Ml IVPB PRN PRN Hypoglycemia Protocol Insulin Aspart 2 - 5 units 12/31/24 17:00 01/01/25 08:29 Insulin Aspart (*Bkc) 100 Units/Ml SUB-Q Not Given TIDWM [facility] Protocol Losartan Potassium 50 mg 01/01/25 09:00 01/01/25 08:19 Losartan Potassium 50 Mg Tablet PO 50 mg QAM DINO Administration Montelukast Sodium 10 mg 01/01/25 09:00 01/01/25 08:19 Montelukast Sodium 10 Mg Tablet PO 10 mg DAILY DINO Administration Nitroglycerin 0.4 mg 12/31/24 20:38 Nitroglycerin Sl 0.4 Mg Tablet SUBLINGUAL Q5MIN PRN Chest Pain Pantoprazole Sodium 40 mg 01/01/25 09:00 01/01/25 08:19 Pantoprazole 40 Mg Tablet PO 40 mg DAILY DINO Administration Psyllium Hydrophilic Mucilloid 1 packet 01/01/25 09:00 01/01/25 08:23 Psyllium Sugar Free Powder Packet PO 1 packet QAM DINO Administration Timolol Maleate 1 drop 12/31/24 21:00 12/31/24 20:27 Timolol Maleate 0.5% Op Soln 5 Ml Bottle EACH EYE 1 drop DAILY DINO Administration Radiology Results: ITS Impressions Chest X-Ray 12/31/24 11:36 IMPRESSION: 1. No acute cardiopulmonary findings. Labs Labs: Laboratory Results - last 24 hr 12/31/24 12/31/24 12/31/24 11:54 16:13 17:39 WBC 7.5 RBC 5.49 Hgb 16.5 Hct 46.4 MCV 84.5 MCH 30.1 MCHC 35.6 RDW 12.8 Plt Count 229 MPV 9.1 Immature Gran % (Auto) 0.3 Neut % (Auto) 61.3 Lymph % (Auto) 27.9 [place] % (Auto) 7.7 Eos % (Auto) 2.1 Baso % (Auto) 0.7 Lymph # (Auto) 2.10 [place] # (Auto) 0.6 Eos # (Auto) 0.2 Baso # (Auto) 0.1 Abs Immat Gran (auto) 0.02 Absolute Neuts (auto) 4.6 Absolute Nucleated RBC 0.000 Nucleated RBC % 0.0 PT 14.7 INR 1.1 APTT 31.7 Sodium 134 L Potassium 3.5 Chloride 99 Carbon Dioxide 26 Anion Gap 9 BUN 10 Creatinine 0.71 Estim Creat Clear Calc 129 Estimated GFR > 60 Glucose 235 H POC Capillary Glucose 207 H Hemoglobin A1c Calcium 8.9 Total Bilirubin 1.1 AST 60 H ALT 105 H Alkaline Phosphatase 77 Troponin I < 0.012 < 0.012 Total Protein 7.6 Albumin 4.3 Lipase 156 12/31/24 12/31/24 01/01/25 20:18 20:52 03:52 WBC 6.8 RBC 5.20 Hgb 15.7 Hct 44.9 MCV 86.3 MCH 30.2 MCHC 35.0 RDW 12.8 Plt Count 212 MPV 9.5 Immature Gran % (Auto) 0.3 Neut % (Auto) 44.8 L Lymph % (Auto) 40.3 [place] % (Auto) 10.5 H Eos % (Auto) 3.2 Baso % (Auto) 0.9 Lymph # (Auto) 2.75 [place] # (Auto) 0.7 H Eos # (Auto) 0.2 Baso # (Auto) 0.1 Abs Immat Gran (auto) 0.02 Absolute Neuts (auto) 3.1 Absolute Nucleated RBC 0.000 Nucleated RBC % 0.0 PT INR APTT Sodium 134 L Potassium 3.3 L Chloride 100 Carbon Dioxide 27 Anion Gap 7 BUN 11 Creatinine 0.70 Estim Creat Clear Calc 128 Estimated GFR > 60 Glucose 168 H POC Capillary Glucose 193 H Hemoglobin A1c 7.6 H Calcium 8.6 Total Bilirubin AST ALT Alkaline Phosphatase Troponin I < 0.012 Total Protein Albumin Lipase 01/01/25 07:31 WBC RBC Hgb Hct MCV MCH MCHC RDW Plt Count MPV Immature Gran % (Auto) Neut % (Auto) Lymph % (Auto) [place] % (Auto) Eos % (Auto) Baso % (Auto) Lymph # (Auto) [place] # (Auto) Eos # (Auto) Baso # (Auto) Abs Immat Gran (auto) Absolute Neuts (auto) Absolute Nucleated RBC Nucleated RBC % PT INR APTT Sodium Potassium Chloride Carbon Dioxide Anion Gap BUN Creatinine Estim Creat Clear Calc Estimated GFR Glucose POC Capillary Glucose 178 H Hemoglobin A1c Calcium Total Bilirubin AST ALT Alkaline Phosphatase Troponin I Total Protein Albumin Lipase
[2025-01-01] MEDS: POTASSIUM CHLORIDE 20 MEQ ER TABLET 40 MEQ PO (09:54)
--- NOTE | 2025-01-01 10:56 | PM.CNCAR ---
Assessment and Plan Assessment and plan (1) Angina pectoris, unstable: Code(s): I20.0 - Unstable angina Status: Acute Plan Unstable angina Hypertension Mixed dyslipidemia Diabetes mellitus type 2 Plan Aspirin Statin Losartan Beta-gomez Left heart catheterization on Friday History of Present Illness History of Present Illness Consult date/time: 01/01/25 10:56 Reason For Visit: Unstable Angina Narrative: 54-year-old male patient presents to the hospital with acute episode of chest pain that happened following exercise the stress test. In the recovery phase patient start having intermittent midsternal pressure-like been diffuse across the chest that improved with nitroglycerin. The patient completed stress test with abnormal reversible ischemia inferior basal segment. Patient has been complaining of intermittent chest discomfort with activity in the last 3 weeks. [facility] Past Medical History Medical History Obesity Glaucoma Diabetes HTN (hypertension) Hypercholesterolemia GERD (gastroesophageal reflux disease) Family History Family History Grandparent ETOH abuse Myocardial infarct Father High cholesterol Father Diabetes type 2 Father H/O heart artery stent Father Hypertension Other CAD (coronary artery disease) Myocardial infarct S/P CABG (coronary artery bypass graft) Father CAD (coronary artery disease) Father No problems noted. Social History Social History Smoking status: Never smoker Alcohol intake: current Drinks per week: 3 Substance use: never Substance use type: does not use Lack of Transportation: No Lack of Food: Never True Current Housing: I Have Housing Concerned About Future Housing: No Difficulty Paying Gas/Electric Bills: No Difficulty Paying for Meds: No Currently Unemployed: No Education: Bachelor's Degree Difficulty w/ Childcare or Family Care: No Living arrangements: other Additional living arrangements comments: With Spiritual care concerns: No Meds Home Medications and Allergies Home Medications ?Medication ?Instructions ?Recorded ?Confirmed ?Type atorvastatin 10 mg tablet 10 mg PO DAILY 02/28/22 12/31/24 History metformin 500 mg tablet,extended 500 mg PO DAILY 02/28/22 12/31/24 History release 24 hr montelukast 10 mg tablet 10 mg PO DAILY 02/28/22 12/31/24 History pantoprazole 40 mg tablet,delayed 40 mg PO DAILY 02/28/22 12/31/24 History release semaglutide 0.25 mg or 0.5 mg (2 0.5 mg subcut WEEKLY 02/28/22 12/31/24 History mg/1.5 mL) subcutaneous pen injector (Ozempic) timolol maleate 0.5 % eye drops 1 drp EACH EYE DAILY 02/28/22 12/31/24 History carvedilol 12.5 mg tablet 6.25 mg PO Q12H 12/31/24 12/31/24 History losartan 50 mg-hydrochlorothiazide 1 tablet PO DAILY 12/31/24 12/31/24 History 12.5 mg tablet psyllium husk See Rx Instructions PO DAILY 12/31/24 12/31/24 History coQ10 (ubiquinol) 100 mg capsule 100 mg PO DAILY 01/01/25 01/01/25 History (Qunol Michael CoQ10) [id number] 300 mcg-K 60 1 tablet PO DAILY 01/01/25 01/01/25 History mcg-lycop 600 mcg-lutein 300 mcg tablet (Centrum Silver Men) omega-3 900 mg-dha 360 mg-epa 455 2 cap PO DAILY 01/01/25 01/01/25 History mg-fish oil 1,000 mg capsule (Fish Oil) Allergies Allergy/AdvReac Type Severity Reaction Status Date / Time PROCHLORPERAZINE EDISYLATE Allergy Severe SEIZURE Uncoded 12/31/24 16:35 PROCHLORPERAZINE MALEATE Allergy Severe SEIZURE Uncoded 12/31/24 16:35 Vital Signs Vital Signs - 24 hr 12/31/24 11:12 12/31/24 11:19 12/31/24 11:27 Temperature Pulse Rate 93 95 Respiratory Rate 16 17 Blood Pressure 140/95 H Pulse Oximetry 97 95 Oxygen Delivery Room Air Room Air 12/31/24 11:34 12/31/24 11:49 12/31/24 12:15 Temperature Pulse Rate 89 96 92 Respiratory Rate 16 12 12 Blood Pressure 139/90 153/98 H 137/99 H Pulse Oximetry 94 96 94 Oxygen Delivery 12/31/24 12:30 12/31/24 14:12 12/31/24 14:15 Temperature Pulse Rate 91 78 87 Respiratory Rate 15 13 Blood Pressure 146/98 H 154/104 H Pulse Oximetry 97 94 Oxygen Delivery 12/31/24 15:15 12/31/24 16:00 12/31/24 16:00 Temperature 36.9 C Pulse Rate 86 89 88 Respiratory Rate 19 12 Blood Pressure 144/95 H 152/96 H Pulse Oximetry 95 97 Oxygen Delivery 12/31/24 18:00 12/31/24 20:00 12/31/24 20:27 Temperature Pulse Rate 85 81 79 Respiratory Rate Blood Pressure Pulse Oximetry Oxygen Delivery 12/31/24 20:31 12/31/24 22:00 01/01/25 00:00 Temperature 36.4 C L 36.9 C Pulse Rate 82 75 69 Respiratory Rate 14 16 Blood Pressure 143/92 H 129/86 Pulse Oximetry 93 96 Oxygen Delivery 01/01/25 00:00 01/01/25 02:00 01/01/25 04:00 Temperature Pulse Rate 78 72 Respiratory Rate Blood Pressure Pulse Oximetry Oxygen Delivery Room Air 01/01/25 04:00 01/01/25 04:00 01/01/25 06:00 Temperature 37.0 C Pulse Rate 90 74 89 Respiratory Rate 16 Blood Pressure 115/73 Pulse Oximetry 93 Oxygen Delivery 01/01/25 08:00 01/01/25 08:00 01/01/25 08:18 Temperature 36.6 C Pulse Rate 74 84 92 Respiratory Rate 16 Blood Pressure 130/93 H Pulse Oximetry 95 Oxygen Delivery 01/01/25 10:00 Temperature Pulse Rate 89 Respiratory Rate Blood Pressure Pulse Oximetry Oxygen Delivery Exam Const: General: comfortable and no acute distress Other: Able to lie flat HENMT: Face/Nose/Sinus: Normal nares present and no epistaxis Mouth: Yes moist mucous membranes Eyes: Sclera: sclerae normal Pupils: Equal, round and reactive pupils present Neck: Neck: supple and no JVD Carotids: no bruits Resp: Auscultation: clear to auscultation bilaterally and lung sounds not diminished Other: No chest wall tenderness Cardio: Rate: regular rate Rhythm: regular rhythm Heart sounds: no gallops, no murmurs and no rubs GI: GI Palp: Yes Soft to palpation and No Tenderness to palpation present (GI) Auscultation: normal bowel sounds Skin: General skin exam: normal color, rashes and/or lesions noted and no erythema Other: Warm Neuro: Cranial nerves: Yes Equal, round and reactive pupils present Speech: normal speech Other: No obvious focal deficit or facial asymmetry Extrem: General: no edema Other: Normal capillary refills Intact distal pulses. Results Labs and Meds 01/01/25 03:52 01/01/25 03:52 Lab results: Cardiac Enzymes 12/31/24 12/31/24 12/31/24 Range/Units 11:54 17:39 20:18 AST 60 H (17-59) U/L Troponin I < 0.012 < 0.012 < 0.012 (0.000-0.034) ng/mL Coagulation 12/31/24 Range/Units 11:54 PT 14.7 (11.1-14.7) Seconds APTT 31.7 (22.3-36.8) Seconds CBC 12/31/24 01/01/25 Range/Units 11:54 03:52 WBC 7.5 6.8 (4.5-10.0) K/mm3 RBC 5.49 5.20 (4.6-6.20) M/mm3 Hgb 16.5 15.7 (14.0-18.0) g/dL Hct 46.4 44.9 (42.0-52.0) % Plt Count 229 212 (150-375) k/mm3 Lymph # (Auto) 2.10 2.75 (0.9-3.2) K/mm3 [place] # (Auto) 0.6 0.7 H (0.1-0.6) K/mm3 Eos # (Auto) 0.2 0.2 (0-0.3) K/mm3 Baso # (Auto) 0.1 0.1 (0.0-0.1) K/mm3 Comprehensive Metabolic Panel 12/31/24 01/01/25 Range/Units 11:54 03:52 Sodium 134 L 134 L (137-145) mmol/L Potassium 3.5 3.3 L (3.4-5.0) mmol/L Chloride 99 100 (98-107) mmol/L Carbon Dioxide 26 27 (22-30) mmol/L BUN 10 11 (9-20) mg/dL Creatinine 0.71 0.70 (0.7-1.3) mg/dL Glucose 235 H 168 H (65-110) mg/dL Calcium 8.9 8.6 (8.4-10.2) mg/dL AST 60 H (17-59) U/L ALT 105 H (6-50) U/L Alkaline Phosphatase 77 (38-126) U/L Total Protein 7.6 (6.3-8.2) g/dL Albumin 4.3 (3.5-5.1) g/dL Intake and Output 12/31/24 01/01/25 01/01/25 23:59 07:59 15:59 Intake Total 480 Balance 480 Intake: Oral 480 Other: # Unmeasured Voids 0 Patient Weight 01/01/25 23:59 Weight 109.8 kg
[2025-01-01] MEDS: INSULIN ASPART (*BKC) 100 UNITS/ML SUB-Q (12:04)
[2025-01-01] MEDS: TIMOLOL MALEATE 0.5% OP SOLN 5 ML BOTTLE 1 DROP EACH EYE (20:09)
[2025-01-01] MEDS: ACETAMINOPHEN 325 MG TABLET 650 MG PO (20:22)
[2025-01-02] VITALS (20 sets, daily range): BP systolic 108–137; BP diastolic 70–95; PULSE 63–94; RESP 16–19; TEMP 36.4–36.9; O2SAT 93–98
[2025-01-02] MEDS: ATORVASTATIN 10 MG TABLET PO (08:56)
[2025-01-02] MEDS: LOSARTAN POTASSIUM 50 MG TABLET PO (08:56)
[2025-01-02] MEDS: ASPIRIN 81 MG CHEWABLE TABLET PO (08:56)
[2025-01-02] MEDS: MONTELUKAST SODIUM 10 MG TABLET PO (08:56)
[2025-01-02] MEDS: PSYLLIUM SUGAR FREE POWDER PACKET 1 PACKET PO (08:56)
[2025-01-02] MEDS: PANTOPRAZOLE 40 MG TABLET PO (08:59)
[2025-01-02] MEDS: INSULIN ASPART (*BKC) 100 UNITS/ML SUB-Q (11:52)
--- NOTE | 2025-01-02 11:59 | PM.IMPN ---
Progress Note: A&P Assessment and Plan (1) Angina pectoris, unstable: Code(s): I20.0 - Unstable angina Status: Acute Assessment and Plan: Patient had episode of chest pain while undergoing cardiac stress test that was relieved with sublingual nitro. Stress test results are not available for review. Patient has no known history of coronary artery disease but has several risk factors and family history. Troponins are negative. EKG reads sinus rhythm with incomplete right bundle branch block. Chest x-ray with no acute cardiopulmonary findings. -cardiology consulted -p.r.n. sublingual nitro -ASA 324 in ED -Lovenox 1 mg/kg once given Cardiology plans left heart catheterization on Friday NPO after midnight (2) Diabetes: Code(s): E11.9 - Type 2 diabetes mellitus without complications Status: Chronic Assessment and Plan: - hypoglycemia protocol - POC blood glucose ACHS - home medication: Metformin, Ozempic - correct regimen ordered: Low-dose correctional scale - A1C 7.6 (3) Hypercholesterolemia: Code(s): E78.00 - Pure hypercholesterolemia, unspecified Status: Chronic Assessment and Plan: Continue Lipitor (4) HTN (hypertension): Code(s): I10 - Essential (primary) hypertension Status: Chronic Assessment and Plan: Continue hydrochlorothiazide, Cozaar, Coreg, lisinopril (5) GERD (gastroesophageal reflux disease): Code(s): K21.9 - Gastro-esophageal reflux disease without esophagitis Status: Chronic Assessment and Plan: Continue pantoprazole Subjective Date/time seen: 01/02/25 11:59 Interval history: No overnight events. No further chest pain. Denies any chills shortness of breath Review of Systems Review of Systems: All systems reviewed & are unremarkable except as noted in HPI and below Exam Narrative: GENERAL: non-toxic appearing, in no acute distress. HEAD: Normocephalic, atraumatic. EYES: PERRLA. Conjunctivae clear. NECK: Trachea midline. No adenopathy, no masses. RESPIRATORY: Airway patent, respirations nonlabored. CTA. CARDIOVASCULAR: Regular rate and rhythm w GASTROINTESTINAL: Abdomen is soft and nontender. No organomegaly. Bowel sounds normal in all quadrants. GENITOURINARY: Defer MUSCULOSKELETAL: Moves all extremities. No gross deformities. Moves all extremities well. No calf tenderness. SKIN: Warm, dry, normal color. NEURO: A&O X4. Speech clear PSYCHIATRIC: Normal interaction Objective Data Vital Signs Vital Signs: Vital Signs - 24 hr 01/01/25 12:00 01/01/25 14:00 01/01/25 15:54 Temperature 98.2 F Pulse Rate 85 93 79 Respiratory Rate 16 Blood Pressure 128/94 H Pulse Oximetry 97 Oxygen Delivery 01/01/25 16:00 01/01/25 18:00 01/01/25 20:00 Temperature 98.4 F Pulse Rate 89 93 85 Respiratory Rate 18 Blood Pressure 140/93 H Pulse Oximetry 94 Oxygen Delivery 01/01/25 20:00 01/01/25 20:00 01/01/25 20:08 Temperature Pulse Rate 81 88 Respiratory Rate Blood Pressure Pulse Oximetry Oxygen Delivery Room Air 01/01/25 22:00 01/02/25 00:00 01/02/25 00:00 Temperature 97.7 F Pulse Rate 71 70 Respiratory Rate 16 Blood Pressure 127/73 Pulse Oximetry 95 Oxygen Delivery Room Air 01/02/25 00:00 01/02/25 02:00 01/02/25 03:46 Temperature Pulse Rate 66 69 Respiratory Rate Blood Pressure Pulse Oximetry Oxygen Delivery Room Air 01/02/25 03:59 01/02/25 04:00 01/02/25 06:00 Temperature 97.6 F Pulse Rate 70 63 70 Respiratory Rate 16 Blood Pressure 125/70 Pulse Oximetry 93 Oxygen Delivery 01/02/25 08:00 01/02/25 08:00 01/02/25 08:56 Temperature 98.3 F Pulse Rate 87 76 88 Respiratory Rate 19 Blood Pressure 137/81 Pulse Oximetry 97 Oxygen Delivery 01/02/25 09:00 01/02/25 09:01 01/02/25 10:00 Temperature Pulse Rate 94 Respiratory Rate Blood Pressure Pulse Oximetry 96 Oxygen Delivery Room Air Room Air 01/02/25 11:52 Temperature 97.5 F L Pulse Rate 88 Respiratory Rate 17 Blood Pressure 121/83 Pulse Oximetry 94 Oxygen Delivery Intake/Output Intake/Output: Intake & Output 12/30/24 12/31/24 01/01/25 01/02/25 23:59 23:59 23:59 23:59 Intake Total 1434 360 Balance 1434 360 Meds/Results Medications: Active Medications Generic Name Dose Route Start Last Admin Trade Name Freq PRN Reason Stop Dose Admin Acetaminophen 650 mg 12/31/24 14:02 01/01/25 20:22 Acetaminophen 325 Mg Tablet PO 650 mg Q4H PRN Administration Mild Pain (1-3) or Fever Aspirin 81 mg 01/01/25 08:00 01/02/25 08:56 Aspirin 81 Mg Chewable Tablet PO 81 mg DAILY@0800 DINO Administration Atorvastatin Calcium 10 mg 01/01/25 09:00 01/02/25 08:56 Atorvastatin 10 Mg Tablet PO 10 mg DAILY DINO Administration Carvedilol 6.25 mg 12/31/24 21:00 01/02/25 08:56 Carvedilol 6.25 Mg Tablet PO 6.25 mg Q12H DINO Administration Dextrose 12.5 gm 12/31/24 15:49 Dextrose 50% 25 Gm/50 Ml Syringe IV PUSH PRN PRN Hypoglycemia Protocol Glucagon 1 mg 12/31/24 15:49 Glucagon For Inj 1 Mg Vial IM PRN PRN Hypoglycemia Protocol Glucose 15 gm 12/31/24 15:49 Glucose Oral Gel 15 Gm Of Glucse In 37.5 Gm Tube PO PRN PRN Hypoglycemia Protocol Hydrochlorothiazide 12.5 mg 01/01/25 09:00 01/02/25 08:56 Hydrochlorothiazide 12.5 Mg Capsule PO 12.5 mg QAM DINO Administration Dextrose 1,000 mls @ 100 mls/hr 12/31/24 15:49 Dextrose 5% 1,000 Ml IVPB PRN PRN Hypoglycemia Protocol Insulin Aspart 2 - 5 units 12/31/24 17:00 01/02/25 11:52 Insulin Aspart (*Bkc) 100 Units/Ml SUB-Q 2 units TIDWM DINO Administration Protocol Losartan Potassium 50 mg 01/01/25 09:00 01/02/25 08:56 Losartan Potassium 50 Mg Tablet PO 50 mg QAM DINO Administration Montelukast Sodium 10 mg 01/01/25 09:00 01/02/25 08:56 Montelukast Sodium 10 Mg Tablet PO 10 mg DAILY DINO Administration Nitroglycerin 0.4 mg 12/31/24 20:38 Nitroglycerin Sl 0.4 Mg Tablet SUBLINGUAL Q5MIN PRN Chest Pain Pantoprazole Sodium 40 mg 01/01/25 09:00 01/02/25 08:59 Pantoprazole 40 Mg Tablet PO 40 mg DAILY DINO Administration Psyllium Hydrophilic Mucilloid 1 packet 01/01/25 09:00 01/02/25 08:56 Psyllium Sugar Free Powder Packet PO 1 packet QAM DINO Administration Timolol Maleate 1 drop 01/01/25 21:00 01/01/25 20:09 Timolol Maleate 0.5% Op Soln 5 Ml Bottle EACH EYE 1 drop HS DINO Administration Radiology Results: ITS Impressions Chest X-Ray 12/31/24 11:36 IMPRESSION: 1. No acute cardiopulmonary findings. Labs Labs: Laboratory Results - last 24 hr 01/01/25 01/01/25 01/02/25 16:52 20:32 07:35 POC Capillary Glucose 195 H 191 H 176 H 01/02/25 11:22 POC Capillary Glucose 210 H
--- NOTE | 2025-01-02 12:33 | PM.PNCARD ---
Progress Note: A&P Assessment and Plan (1) Angina pectoris, unstable: Code(s): I20.0 - Unstable angina Status: Acute Plan Unstable angina Hypertension Mixed dyslipidemia Diabetes mellitus type 2 Plan Aspirin Statin Losartan Beta-gomez Left heart catheterization on Friday Subjective Date/time seen: 01/02/25 12:33 Interval history: Follow up for Unstable angina No acute events Tele NSR Review of Systems Review of Systems: All systems reviewed & are unremarkable except as noted in HPI and below Exam Const: General: comfortable and no acute distress Other: Able to lie flat HENMT: Face/Nose/Sinus: Normal nares present and no epistaxis Mouth: Yes moist mucous membranes Eyes: Sclera: sclerae normal Pupils: Equal, round and reactive pupils present Neck: Neck: supple and no JVD Carotids: no bruits Resp: Auscultation: clear to auscultation bilaterally and lung sounds not diminished Other: No chest wall tenderness Cardio: Rate: regular rate Rhythm: regular rhythm Heart sounds: no gallops, no murmurs and no rubs GI: GI Palp: Yes Soft to palpation and No Tenderness to palpation present (GI) Auscultation: normal bowel sounds Skin: General skin exam: normal color, rashes and/or lesions noted and no erythema Other: Warm Neuro: Cranial nerves: Yes Equal, round and reactive pupils present Speech: normal speech Other: No obvious focal deficit or facial asymmetry Extrem: General: no edema Other: Normal capillary refills Intact distal pulses. Objective Data Vital Signs Vital Signs: Vital Signs - 24 hr 01/01/25 14:00 01/01/25 15:54 01/01/25 16:00 Temperature 36.8 C Pulse Rate 93 79 89 Respiratory Rate 16 Blood Pressure 128/94 H Pulse Oximetry 97 Oxygen Delivery 01/01/25 18:00 01/01/25 20:00 01/01/25 20:00 Temperature 36.9 C Pulse Rate 93 85 Respiratory Rate 18 Blood Pressure 140/93 H Pulse Oximetry 94 Oxygen Delivery Room Air 01/01/25 20:00 01/01/25 20:08 01/01/25 22:00 Temperature Pulse Rate 81 88 71 Respiratory Rate Blood Pressure Pulse Oximetry Oxygen Delivery 01/02/25 00:00 01/02/25 00:00 01/02/25 00:00 Temperature 36.5 C Pulse Rate 70 66 Respiratory Rate 16 Blood Pressure 127/73 Pulse Oximetry 95 Oxygen Delivery Room Air 01/02/25 02:00 01/02/25 03:46 01/02/25 03:59 Temperature 36.4 C Pulse Rate 69 70 Respiratory Rate 16 Blood Pressure 125/70 Pulse Oximetry 93 Oxygen Delivery Room Air 01/02/25 04:00 01/02/25 06:00 01/02/25 08:00 Temperature 36.8 C Pulse Rate 63 70 87 Respiratory Rate 19 Blood Pressure 137/81 Pulse Oximetry 97 Oxygen Delivery 01/02/25 08:00 01/02/25 08:56 01/02/25 09:00 Temperature Pulse Rate 76 88 Respiratory Rate Blood Pressure Pulse Oximetry Oxygen Delivery Room Air 01/02/25 09:01 01/02/25 10:00 01/02/25 11:52 Temperature 36.4 C L Pulse Rate 94 88 Respiratory Rate 17 Blood Pressure 121/83 Pulse Oximetry 96 94 Oxygen Delivery Room Air 01/02/25 12:00 01/02/25 12:00 Temperature Pulse Rate 83 Respiratory Rate Blood Pressure Pulse Oximetry Oxygen Delivery Room Air Intake/Output Intake/Output: Intake & Output 12/30/24 12/31/24 01/01/25 01/02/25 23:59 23:59 23:59 23:59 Intake Total 1434 360 Balance 1434 360 Meds/Results Medications: Active Medications Generic Name Dose Route Start Last Admin Trade Name Freq PRN Reason Stop Dose Admin Acetaminophen 650 mg 12/31/24 14:02 01/01/25 20:22 Acetaminophen 325 Mg Tablet PO 650 mg Q4H PRN Administration Mild Pain (1-3) or Fever Aspirin 81 mg 01/01/25 08:00 01/02/25 08:56 Aspirin 81 Mg Chewable Tablet PO 81 mg DAILY@0800 DINO Administration Atorvastatin Calcium 10 mg 01/01/25 09:00 01/02/25 08:56 Atorvastatin 10 Mg Tablet PO 10 mg DAILY DINO Administration Carvedilol 6.25 mg 12/31/24 21:00 01/02/25 08:56 Carvedilol 6.25 Mg Tablet PO 6.25 mg Q12H DINO Administration Dextrose 12.5 gm 12/31/24 15:49 Dextrose 50% 25 Gm/50 Ml Syringe IV PUSH PRN PRN Hypoglycemia Protocol Glucagon 1 mg 12/31/24 15:49 Glucagon For Inj 1 Mg Vial IM PRN PRN Hypoglycemia Protocol Glucose 15 gm 12/31/24 15:49 Glucose Oral Gel 15 Gm Of Glucse In 37.5 Gm Tube PO PRN PRN Hypoglycemia Protocol Hydrochlorothiazide 12.5 mg 01/01/25 09:00 01/02/25 08:56 Hydrochlorothiazide 12.5 Mg Capsule PO 12.5 mg QAM DINO Administration Dextrose 1,000 mls @ 100 mls/hr 12/31/24 15:49 Dextrose 5% 1,000 Ml IVPB PRN PRN Hypoglycemia Protocol Insulin Aspart 2 - 5 units 12/31/24 17:00 01/02/25 11:52 Insulin Aspart (*Bkc) 100 Units/Ml SUB-Q 2 units TIDWM DINO Administration Protocol Losartan Potassium 50 mg 01/01/25 09:00 01/02/25 08:56 Losartan Potassium 50 Mg Tablet PO 50 mg QAM DINO Administration Montelukast Sodium 10 mg 01/01/25 09:00 01/02/25 08:56 Montelukast Sodium 10 Mg Tablet PO 10 mg DAILY DINO Administration Nitroglycerin 0.4 mg 12/31/24 20:38 Nitroglycerin Sl 0.4 Mg Tablet SUBLINGUAL Q5MIN PRN Chest Pain Pantoprazole Sodium 40 mg 01/01/25 09:00 01/02/25 08:59 Pantoprazole 40 Mg Tablet PO 40 mg DAILY DINO Administration Psyllium Hydrophilic Mucilloid 1 packet 01/01/25 09:00 01/02/25 08:56 Psyllium Sugar Free Powder Packet PO 1 packet QAM DINO Administration Timolol Maleate 1 drop 01/01/25 21:00 01/01/25 20:09 Timolol Maleate 0.5% Op Soln 5 Ml Bottle EACH EYE 1 drop HS DINO Administration Radiology Results: ITS Impressions Chest X-Ray 12/31/24 11:36 IMPRESSION: 1. No acute cardiopulmonary findings. Labs Labs: Laboratory Results - last 24 hr 01/01/25 01/01/25 01/02/25 16:52 20:32 07:35 POC Capillary Glucose 195 H 191 H 176 H 01/02/25 11:22 POC Capillary Glucose 210 H
[2025-01-02] MEDS: TIMOLOL MALEATE 0.5% OP SOLN 5 ML BOTTLE 1 DROP EACH EYE (20:55)
[2025-01-03] VITALS (22 sets, daily range): BP systolic 118–146; BP diastolic 72–105; PULSE 67–82; RESP 11–18; TEMP 36.4–36.8; O2SAT 92–97
--- NOTE | 2025-01-03 | ECHO_ITS ---
Patient Info Name: Eligio Cao Age: 54 years : 1970 Gender: Male Ht: 69 in Wt: 243 lbs BSA: 2.36 m2 HR: 79 bpm BP: 137 / 86 mmHg Heart Rhythm: Sinus Rhythm Technical Quality: Good Exam Date: 01/03/2025 3:29 PM Patient Status: unknown Admit Date: 12/31/2024 Exam Type: CA echo doppler color flow Complete two-dimensional, color flow and Doppler transthoracic echocardiogram is performed. Staff Referring Physician: Octavio Boyle MD [employer]: Tal Orantes III Attending Provider: Demond Nguyen MD Summary 1. Complete two-dimensional, color flow and Doppler transthoracic echocardiogram is performed. 2. Left ventricular hypertrophy with well-preserved systolic function, no regional wall motion abnormalities. 3. Mild mitral regurgitation, anatomically normal appearing valve. Left Ventricle Left ventricular chamber dimension is normal. Left ventricular systolic function is normal, estimated at 65-70. There is mild concentric increased left ventricular wall thickness. The left ventricular diastolic function is grade I diastolic dysfunction. Right Ventricle Right ventricular chamber dimension is normal. Left Atria Left atrial chamber dimension is normal. Right Atria Right atrial chamber dimension is normal. Aortic Valve The aortic valve is normal. Pulmonic Valve The pulmonic valve is normal. Mitral Valve The mitral valve has normal leaflets. There is mild mitral valve regurgitation. Tricuspid Valve The tricuspid valve leaflets are normal. Pericardium/Pleural The pericardium appears normal. Aorta The aortic root size at the sinus of Valsalva is normal. Left Ventricular Outflow Tract Name Value Normal LVOT 2D LVOT Diameter 2.4 cm LVOT Doppler LVOT Peak Velocity 83 cm/s LVOT Peak Gradient 3 mmHg LVOT Mean Gradient 1 mmHg LVOT VTI 16 cm LVOT VTI/AV VTI Ratio 0.8 LVOT Stroke Volume 70 ml LVOT CO 4.7 l/min LVOT CI 2.0 l/min/m2 Pulmonic Valve Name Value Normal PV Doppler PV Peak Velocity 80 cm/s PV Peak Gradient 3 mmHg PV Mean Gradient 2 mmHg Mitral Valve Name Value Normal MV Doppler MV Peak Gradient 2 mmHg MV Mean Gradient 1 mmHg MV Area (Cont Eq VTI) 3.4 cm2 MV Diastolic Function MV E Peak Velocity 56 cm/s MV A Peak Velocity 58 cm/s MV E/A 1.0 MV Decel Time (PW) 280 ms MV Annular TDI MV E/e' (Septal) 10.2 MV E/e' (Lateral) 7.1 MV E/e' (Average) 8.6 Tricuspid Valve Name Value Normal TV Annular TDI TV Lateral Elda s' Velocity 17.4 cm/s >=9.5 Aortic Valve Name Value Normal AV Doppler AV Peak Velocity 108 cm/s AV Peak Gradient 5 mmHg AV Mean Gradient 3 mmHg AV VTI 20 cm AV Area (Cont Eq VTI) 3.6 cm2 >=3.0 AV Area (Cont Eq Pavel) 3.4 cm2 AV DI (Pavel) 0.77 AV Regurgitation 2D LVOT Area 4.4 cm2 Ventricles Name Value Normal LV Dimensions 2D/MM IVS Diastolic Thickness (2D) 1.3 cm 0.6-1.0 LVID Diastole (2D) 5.1 cm 4.2-5.8 LVIW Diastolic Thickness (2D) 1.3 cm 0.6-1.0 LVID Systole (2D) 3.6 cm 2.5-4.0 LVOT Diameter 2.4 cm LV Mass (2D Cubed) 262.17 g 88.00-224.00 LV Mass Index (2D Cubed) 111 g/m2 49-115 Relative Wall Thickness (2D) 0.49 <=0.42 LV Fractional Shortening/Ejection Fraction 2D/MM LV Fractional Shortening (2D) 30 % 25-43 LV EF (2D Teichmilindz) 57 % LV Diastolic Volume (4C MOD) 97 ml LV EF (4C MOD) 62 % LV Diastolic Volume (2C MOD) 51 ml LV EF (2C MOD) 51 % LV Diastolic Volume (BP MOD) 73 ml 62-150 LV Diastolic Volume Index (BP MOD) 31 ml/m2 34-74 LV Systolic Volume (BP MOD) 32 ml 21-61 LV Systolic Volume Index (BP MOD) 13 ml/m2 11-31 LV EF (BP MOD) 56 % 52-72 LV Diastolic Length (4C) 8.8 cm LV Systolic Length (4C) 7.2 cm LV Stroke Volume (4C MOD) 60 ml Atria Name Value Normal LA Dimensions LA Volume (4C A-L) 62 ml LA Volume (BP A-L) 66 ml RA Dimensions RA Systolic Major [place] Length (4C) 5.5 cm 2.1-2.7 RA Area (4C) 19.3 cm2 <=18.0 Report Signatures
--- NOTE | 2025-01-03 07:38 | PM.IMPN ---
Progress Note: A&P Assessment and Plan (1) Angina pectoris, unstable: Code(s): I20.0 - Unstable angina Status: Acute Assessment and Plan: Patient had episode of chest pain while undergoing cardiac stress test that was relieved with sublingual nitro. Stress test results are not available for review. Patient has no known history of coronary artery disease but has several risk factors and family history. Troponins are negative. EKG reads sinus rhythm with incomplete right bundle branch block. Chest x-ray with no acute cardiopulmonary findings. -cardiology consulted -p.r.n. sublingual nitro -ASA 324 in ED -Lovenox 1 mg/kg once given Cardiology plans left heart catheterization on Friday NPO after midnight (2) Diabetes: Code(s): E11.9 - Type 2 diabetes mellitus without complications Status: Chronic Assessment and Plan: - hypoglycemia protocol - POC blood glucose ACHS - home medication: Metformin, Ozempic - correct regimen ordered: Low-dose correctional scale - A1C 7.6 (3) Hypercholesterolemia: Code(s): E78.00 - Pure hypercholesterolemia, unspecified Status: Chronic Assessment and Plan: Continue Lipitor (4) HTN (hypertension): Code(s): I10 - Essential (primary) hypertension Status: Chronic Assessment and Plan: Continue hydrochlorothiazide, Cozaar, Coreg, lisinopril (5) GERD (gastroesophageal reflux disease): Code(s): K21.9 - Gastro-esophageal reflux disease without esophagitis Status: Chronic Assessment and Plan: Continue pantoprazole Subjective Date/time seen: 01/03/25 07:38 Review of Systems Review of Systems: All systems reviewed & are unremarkable except as noted in HPI and below Exam Narrative: GENERAL: non-toxic appearing, in no acute distress. HEAD: Normocephalic, atraumatic. EYES: PERRLA. Conjunctivae clear. NECK: Trachea midline. No adenopathy, no masses. RESPIRATORY: Airway patent, respirations nonlabored. CTA. CARDIOVASCULAR: Regular rate and rhythm w GASTROINTESTINAL: Abdomen is soft and nontender. No organomegaly. Bowel sounds normal in all quadrants. GENITOURINARY: Defer MUSCULOSKELETAL: Moves all extremities. No gross deformities. Moves all extremities well. No calf tenderness. SKIN: Warm, dry, normal color. NEURO: A&O X4. Speech clear PSYCHIATRIC: Normal interaction Objective Data Vital Signs Vital Signs: Vital Signs - 24 hr 01/02/25 08:00 01/02/25 08:00 01/02/25 08:56 Temperature 98.3 F Pulse Rate 87 76 88 Respiratory Rate 19 Blood Pressure 137/81 Pulse Oximetry 97 Oxygen Delivery 01/02/25 09:00 01/02/25 09:01 01/02/25 10:00 Temperature Pulse Rate 94 Respiratory Rate Blood Pressure Pulse Oximetry 96 Oxygen Delivery Room Air Room Air 01/02/25 11:52 01/02/25 12:00 01/02/25 12:00 Temperature 97.5 F L Pulse Rate 88 83 Respiratory Rate 17 Blood Pressure 121/83 Pulse Oximetry 94 Oxygen Delivery Room Air 01/02/25 14:00 01/02/25 15:35 01/02/25 15:41 Temperature 98.4 F Pulse Rate 81 74 Respiratory Rate 19 Blood Pressure 135/95 H Pulse Oximetry 98 Oxygen Delivery Room Air 01/02/25 16:00 01/02/25 18:00 01/02/25 19:26 Temperature 98.5 F Pulse Rate 92 89 83 Respiratory Rate 17 Blood Pressure 108/71 Pulse Oximetry 96 Oxygen Delivery 01/02/25 20:00 01/02/25 20:00 01/02/25 20:55 Temperature Pulse Rate 80 80 86 Respiratory Rate 17 Blood Pressure Pulse Oximetry 96 Oxygen Delivery Room Air 01/02/25 21:54 01/02/25 23:37 01/02/25 23:37 Temperature Pulse Rate 72 74 74 Respiratory Rate 17 Blood Pressure Pulse Oximetry 96 Oxygen Delivery Room Air 01/03/25 00:00 01/03/25 02:00 01/03/25 03:47 Temperature 98.1 F Pulse Rate 71 68 72 Respiratory Rate 18 18 Blood Pressure 125/72 Pulse Oximetry 93 93 Oxygen Delivery Room Air 01/03/25 03:47 01/03/25 04:00 01/03/25 05:52 Temperature 97.6 F Pulse Rate 72 73 78 Respiratory Rate 16 Blood Pressure 118/73 Pulse Oximetry 92 Oxygen Delivery Intake/Output Intake/Output: Intake & Output 12/31/24 01/01/25 01/02/25 01/03/25 23:59 23:59 23:59 23:59 Intake Total 1434 1280 360 Balance 1434 1280 360 Meds/Results Medications: Active Medications Generic Name Dose Route Start Last Admin Trade Name Freq PRN Reason Stop Dose Admin Acetaminophen 650 mg 12/31/24 14:02 01/01/25 20:22 Acetaminophen 325 Mg Tablet PO 650 mg Q4H PRN Administration Mild Pain (1-3) or Fever Aspirin 81 mg 01/01/25 08:00 01/02/25 08:56 Aspirin 81 Mg Chewable Tablet PO 81 mg DAILY@0800 DINO Administration Atorvastatin Calcium 10 mg 01/01/25 09:00 01/02/25 08:56 Atorvastatin 10 Mg Tablet PO 10 mg DAILY DINO Administration Carvedilol 6.25 mg 12/31/24 21:00 01/02/25 20:55 Carvedilol 6.25 Mg Tablet PO 6.25 mg Q12H DINO Administration Dextrose 12.5 gm 12/31/24 15:49 Dextrose 50% 25 Gm/50 Ml Syringe IV PUSH PRN PRN Hypoglycemia Protocol Glucagon 1 mg 12/31/24 15:49 Glucagon For Inj 1 Mg Vial IM PRN PRN Hypoglycemia Protocol Glucose 15 gm 12/31/24 15:49 Glucose Oral Gel 15 Gm Of Glucse In 37.5 Gm Tube PO PRN PRN Hypoglycemia Protocol Hydrochlorothiazide 12.5 mg 01/01/25 09:00 01/02/25 08:56 Hydrochlorothiazide 12.5 Mg Capsule PO 12.5 mg QAM DINO Administration Dextrose 1,000 mls @ 100 mls/hr 12/31/24 15:49 Dextrose 5% 1,000 Ml IVPB PRN PRN Hypoglycemia Protocol Insulin Aspart 2 - 5 units 12/31/24 17:00 01/02/25 16:36 Insulin Aspart (*Bkc) 100 Units/Ml SUB-Q Not Given TIDWM DINO Protocol Losartan Potassium 50 mg 01/01/25 09:00 01/02/25 08:56 Losartan Potassium 50 Mg Tablet PO 50 mg QAM DINO Administration Montelukast Sodium 10 mg 01/01/25 09:00 01/02/25 08:56 Montelukast Sodium 10 Mg Tablet PO 10 mg DAILY DINO Administration Nitroglycerin 0.4 mg 12/31/24 20:38 Nitroglycerin Sl 0.4 Mg Tablet SUBLINGUAL Q5MIN PRN Chest Pain Pantoprazole Sodium 40 mg 01/01/25 09:00 01/02/25 08:59 Pantoprazole 40 Mg Tablet PO 40 mg DAILY DINO Administration Psyllium Hydrophilic Mucilloid 1 packet 01/01/25 09:00 01/02/25 08:56 Psyllium Sugar Free Powder Packet PO 1 packet QAM DINO Administration Timolol Maleate 1 drop 01/01/25 21:00 01/02/25 20:55 Timolol Maleate 0.5% Op Soln 5 Ml Bottle EACH EYE 1 drop HS DINO Administration Radiology Results: ITS Impressions Chest X-Ray 12/31/24 11:36 IMPRESSION: 1. No acute cardiopulmonary findings. Labs Labs: Laboratory Results - last 24 hr 01/02/25 01/02/25 01/02/25 07:35 11:22 16:32 POC Capillary Glucose 176 H 210 H 170 H 01/02/25 01/03/25 19:59 07:16 POC Capillary Glucose 227 H 177 H
[2025-01-03 08:08] LABS: Hematocrit 46.7 % (42.0-52.0); Hemoglobin 16.5 g/dL (14.0-18.0); Mean Corpuscular HGB Conc 35.3 g/dl (32-36); Mean Corpuscular Hemoglobin 29.9 pg (26-34); Mean Corpuscular Volume 84.6 fl (80-100); Platelet Count Result 218 k/mm3 (150-375); Red Blood Count 5.52 M/mm3 (4.6-6.20); White Blood Count 6.0 K/mm3 (4.5-10.0)
[2025-01-03] MEDS: ASPIRIN 81 MG CHEWABLE TABLET PO (08:28)
[2025-01-03] MEDS: MONTELUKAST SODIUM 10 MG TABLET PO (08:28)
[2025-01-03] MEDS: LOSARTAN POTASSIUM 50 MG TABLET PO (08:29)
[2025-01-03] MEDS: PANTOPRAZOLE 40 MG TABLET PO (08:29)
[2025-01-03] MEDS: ATORVASTATIN 10 MG TABLET PO (08:29)
[2025-01-03 08:31] LABS: Anion Gap 6 mmol/L (4-12); Blood Urea Nitrogen 11 mg/dL (9-20); Calcium 9.0 mg/dL (8.4-10.2); Carbon Dioxide 27 mmol/L (22-30); Chloride 101 mmol/L (98-107); Estimated CRCL calculation 122 ml/min; Estimated Glomerular Filt Rate > 60; Glucose 162 mg/dL (65-110); Potassium 3.8 mmol/L (3.4-5.0); Sodium 134 mmol/L (137-145)
--- NOTE | 2025-01-03 08:58 | WPDHPUPDATE1 ---
History and Physical Update Update Date/Time: 01/03/25 08:58 History and Physical has been reviewed, including an updated exam of the patient. There are NO changes in the patient's condition. Risks, benefits, and alternatives have been discussed and questions answered. Patient agrees to proceed with procedure.
--- NOTE | 2025-01-03 08:58 | PM.PNCARD ---
Progress Note: A&P Assessment and Plan (1) Angina pectoris, unstable: Code(s): I20.0 - Unstable angina Status: Acute (2) HTN (hypertension): Code(s): I10 - Essential (primary) hypertension Status: Chronic (3) Hypercholesterolemia: Code(s): E78.00 - Pure hypercholesterolemia, unspecified Status: Chronic (4) Diabetes: Code(s): E11.9 - Type 2 diabetes mellitus without complications Status: Chronic (5) Obesity: Code(s): E66.9 - Obesity, unspecified Status: Acute Plan Problem list: 1. Unstable angina 2. Hypertension 3. Hyperlipidemia 4. Diabetes mellitus 5. Family history of premature CAD Plan: Continue aspirin, statin, Coreg. Left heart catheterization today to evaluate coronaries and possible percutaneous coronary intervention. Risks, benefits, and alternatives of left heart catheterization possible PCI discussed with patient in detail and all questions answered to his satisfaction. He is agreeable proceed. Continue losartan, hydralazine for blood pressure control. Target blood pressure less than 120/80. Control risk factors including hyperlipidemia, diabetes, hypertension. Conformed patient that he does not smoke. TTE today. Subjective Date/time seen: 01/03/25 08:58 Interval history: Reason for encounter: Unstable angina Relevant history: 54-year-old male with history of hypertension, hyperlipidemia, diabetes mellitus (not on insulin), family history of premature CAD was admitted with unstable angina. Troponin negative. EKG shows sinus rhythm with incomplete right bundle-branch block and nonspecific T-wave inversions in inferior and lateral leads. Cardiology was consulted for further management and the left heart catheterization was recommended for further evaluation. Interval history: Patient had recurrence of chest pain at rest on Friday night while sitting in his bed. No recurrence of chest pain since then. He was started on aspirin, statin, Coreg. He is on hydrochlorothiazide losartan for blood pressure control. No allergies contrast. No bleeding issues. No recent or upcoming surgeries. Review of Systems Review of Systems: A complete review of systems was performed and pertinent positives are reported in the HPI. Exam Narrative: General: Alert oriented x3, no acute distress Neck: Supple, no JVD Chest: Bilaterally clear to auscultation, no rales or rhonchi Cardiac: S1, S2 +, regular rate, regular rhythm, no murmurs or rubs Extremities: No bilateral lower extremity edema, no skin rash Neurologic: Alert and oriented x3, no focal neurological deficits Objective Data Vital Signs Vital Signs: Vital Signs - 24 hr 01/02/25 09:00 01/02/25 09:01 01/02/25 10:00 Temperature Pulse Rate 94 Respiratory Rate Blood Pressure Pulse Oximetry 96 Oxygen Delivery Room Air Room Air 01/02/25 11:52 01/02/25 12:00 01/02/25 12:00 Temperature 36.4 C L Pulse Rate 88 83 Respiratory Rate 17 Blood Pressure 121/83 Pulse Oximetry 94 Oxygen Delivery Room Air 01/02/25 14:00 01/02/25 15:35 01/02/25 15:41 Temperature 36.9 C Pulse Rate 81 74 Respiratory Rate 19 Blood Pressure 135/95 H Pulse Oximetry 98 Oxygen Delivery Room Air 01/02/25 16:00 01/02/25 18:00 01/02/25 19:26 Temperature 36.9 C Pulse Rate 92 89 83 Respiratory Rate 17 Blood Pressure 108/71 Pulse Oximetry 96 Oxygen Delivery 01/02/25 20:00 01/02/25 20:00 01/02/25 20:55 Temperature Pulse Rate 80 80 86 Respiratory Rate 17 Blood Pressure Pulse Oximetry 96 Oxygen Delivery Room Air 01/02/25 21:54 01/02/25 23:37 01/02/25 23:37 Temperature Pulse Rate 72 74 74 Respiratory Rate 17 Blood Pressure Pulse Oximetry 96 Oxygen Delivery Room Air 01/03/25 00:00 01/03/25 02:00 01/03/25 03:47 Temperature 36.7 C Pulse Rate 71 68 72 Respiratory Rate 18 18 Blood Pressure 125/72 Pulse Oximetry 93 93 Oxygen Delivery Room Air 01/03/25 03:47 01/03/25 04:00 01/03/25 05:52 Temperature 36.4 C Pulse Rate 72 73 78 Respiratory Rate 16 Blood Pressure 118/73 Pulse Oximetry 92 Oxygen Delivery 01/03/25 07:48 01/03/25 08:28 Temperature 36.8 C Pulse Rate 72 81 Respiratory Rate 18 Blood Pressure 137/86 Pulse Oximetry 95 Oxygen Delivery Intake/Output Intake/Output: Intake & Output 12/31/24 01/01/25 01/02/25 01/03/25 23:59 23:59 23:59 23:59 Intake Total 1434 1280 360 Balance 1434 1280 360 Meds/Results Medications: Active Medications Generic Name Dose Route Start Last Admin Trade Name Abhinav PRN Reason Stop Dose Admin Acetaminophen 650 mg 12/31/24 14:02 01/01/25 20:22 Acetaminophen 325 Mg Tablet PO 650 mg Q4H PRN Administration Mild Pain (1-3) or Fever Aspirin 81 mg 01/01/25 08:00 01/03/25 08:28 Aspirin 81 Mg Chewable Tablet PO 81 mg DAILY@0800 DINO Administration Atorvastatin Calcium 10 mg 01/01/25 09:00 01/03/25 08:29 Atorvastatin 10 Mg Tablet PO 10 mg DAILY DINO Administration Carvedilol 6.25 mg 12/31/24 21:00 01/03/25 08:28 Carvedilol 6.25 Mg Tablet PO 6.25 mg Q12H DINO Administration Dextrose 12.5 gm 12/31/24 15:49 Dextrose 50% 25 Gm/50 Ml Syringe IV PUSH PRN PRN Hypoglycemia Protocol Glucagon 1 mg 12/31/24 15:49 Glucagon For Inj 1 Mg Vial IM PRN PRN Hypoglycemia Protocol Glucose 15 gm 12/31/24 15:49 Glucose Oral Gel 15 Gm Of Glucse In 37.5 Gm Tube PO PRN PRN Hypoglycemia Protocol Hydrochlorothiazide 12.5 mg 01/01/25 09:00 01/03/25 08:29 Hydrochlorothiazide 12.5 Mg Capsule PO 12.5 mg QAM DINO Administration Dextrose 1,000 mls @ 100 mls/hr 12/31/24 15:49 Dextrose 5% 1,000 Ml IVPB PRN PRN Hypoglycemia Protocol Insulin Aspart 2 - 5 units 12/31/24 17:00 01/02/25 16:36 Insulin Aspart (*Bkc) 100 Units/Ml SUB-Q Not Given TIDWM [facility] Protocol Losartan Potassium 50 mg 01/01/25 09:00 01/03/25 08:29 Losartan Potassium 50 Mg Tablet PO 50 mg QAM DINO Administration Montelukast Sodium 10 mg 01/01/25 09:00 01/03/25 08:28 Montelukast Sodium 10 Mg Tablet PO 10 mg DAILY DINO Administration Nitroglycerin 0.4 mg 12/31/24 20:38 Nitroglycerin Sl 0.4 Mg Tablet SUBLINGUAL Q5MIN PRN Chest Pain Pantoprazole Sodium 40 mg 01/01/25 09:00 01/03/25 08:29 Pantoprazole 40 Mg Tablet PO 40 mg DAILY DINO Administration Psyllium Hydrophilic Mucilloid 1 packet 01/01/25 09:00 01/02/25 08:56 Psyllium Sugar Free Powder Packet PO 1 packet QAM DINO Administration Timolol Maleate 1 drop 01/01/25 21:00 01/02/25 20:55 Timolol Maleate 0.5% Op Soln 5 Ml Bottle EACH EYE 1 drop HS DINO Administration Radiology Results: ITS Impressions Chest X-Ray 12/31/24 11:36 IMPRESSION: 1. No acute cardiopulmonary findings. Labs Labs: Laboratory Results - last 24 hr 01/02/25 01/02/25 01/02/25 11:22 16:32 19:59 WBC RBC Hgb Hct MCV MCH MCHC RDW Plt Count MPV Sodium Potassium Chloride Carbon Dioxide Anion Gap BUN Creatinine Estim Creat Clear Calc Estimated GFR Glucose POC Capillary Glucose 210 H 170 H 227 H Calcium 01/03/25 01/03/25 07:16 08:01 WBC 6.0 RBC 5.52 Hgb 16.5 Hct 46.7 MCV 84.6 MCH 29.9 MCHC 35.3 RDW 12.6 Plt Count 218 MPV 9.1 Sodium 134 L Potassium 3.8 Chloride 101 Carbon Dioxide 27 Anion Gap 6 BUN 11 Creatinine 0.74 Estim Creat Clear Calc 122 Estimated GFR > 60 Glucose 162 H POC Capillary Glucose 177 H Calcium 9.0
--- NOTE | 2025-01-03 08:58 | WPDMODSED ---
Moderate Sedation Note-Pt Data Patient Data Allergies Allergy/AdvReac Type Severity Reaction Status Date / Time PROCHLORPERAZINE EDISYLATE Allergy Severe SEIZURE Uncoded 12/31/24 16:35 PROCHLORPERAZINE MALEATE Allergy Severe SEIZURE Uncoded 12/31/24 16:35 Home Medications ?Medication ?Instructions ?Recorded ?Confirmed ?Type atorvastatin 10 mg tablet 10 mg PO DAILY 02/28/22 12/31/24 History metformin 500 mg tablet,extended 500 mg PO DAILY 02/28/22 12/31/24 History release 24 hr montelukast 10 mg tablet 10 mg PO DAILY 02/28/22 12/31/24 History pantoprazole 40 mg tablet,delayed 40 mg PO DAILY 02/28/22 12/31/24 History release semaglutide 0.25 mg or 0.5 mg (2 0.5 mg subcut WEEKLY 02/28/22 12/31/24 History mg/1.5 mL) subcutaneous pen injector (Ozempic) timolol maleate 0.5 % eye drops 1 drp EACH EYE DAILY 02/28/22 12/31/24 History carvedilol 12.5 mg tablet 6.25 mg PO Q12H 12/31/24 12/31/24 History losartan 50 mg-hydrochlorothiazide 1 tablet PO DAILY 12/31/24 12/31/24 History 12.5 mg tablet psyllium husk See Rx Instructions PO DAILY 12/31/24 12/31/24 History coQ10 (ubiquinol) 100 mg capsule 100 mg PO DAILY 01/01/25 01/01/25 History (Qunol Michael CoQ10) tqukvupm-nu-gidse 300 mcg-K 60 1 tablet PO DAILY 01/01/25 01/01/25 History mcg-lycop 600 mcg-lutein 300 mcg tablet (Centrum Silver Men) omega-3 900 mg-dha 360 mg-epa 455 2 cap PO DAILY 01/01/25 01/01/25 History mg-fish oil 1,000 mg capsule (Fish Oil) Current Medications: Active Medications Acetaminophen (Acetaminophen 325 Mg Tablet) 650 mg PO Q4H PRN PRN Reason: Mild Pain (1-3) or Fever Last Admin: 01/01/25 20:22 Dose: 650 mg Aspirin (Aspirin 81 Mg Chewable Tablet) 81 mg PO DAILY@0800 DINO Last Admin: 01/03/25 08:28 Dose: 81 mg Atorvastatin Calcium (Atorvastatin 10 Mg Tablet) 10 mg PO DAILY [facility] [place] Last Admin: 01/03/25 08:29 Dose: 10 mg Carvedilol (Carvedilol 6.25 Mg Tablet) 6.25 mg PO Q12H [facility] [place] Last Admin: 01/03/25 08:28 Dose: 6.25 mg Dextrose (Dextrose 50% 25 Gm/50 Ml Syringe) 12.5 gm IV PUSH PRN PRN; Protocol PRN Reason: Hypoglycemia Glucagon (Glucagon For Inj 1 Mg Vial) 1 mg IM PRN PRN; Protocol PRN Reason: Hypoglycemia Glucose (Glucose Oral Gel 15 Gm Of Glucse In 37.5 Gm Tube) 15 gm PO PRN PRN; Protocol PRN Reason: Hypoglycemia Hydrochlorothiazide (Hydrochlorothiazide 12.5 Mg Capsule) 12.5 mg PO QAM [facility] [place] Last Admin: 01/03/25 08:29 Dose: 12.5 mg Dextrose (Dextrose 5% 1,000 Ml) 1,000 mls @ 100 mls/hr IVPB PRN PRN; Protocol PRN Reason: Hypoglycemia Insulin Aspart (Insulin Aspart (*Bkc) 100 Units/Ml) 2 - 5 units SUB-Q TIDWM [facility] [place]; Protocol Last Admin: 01/02/25 16:36 Dose: Not Given Losartan Potassium (Losartan Potassium 50 Mg Tablet) 50 mg PO QAM [facility] [place] Last Admin: 01/03/25 08:29 Dose: 50 mg Montelukast Sodium (Montelukast Sodium 10 Mg Tablet) 10 mg PO DAILY [facility] [place] Last Admin: 01/03/25 08:28 Dose: 10 mg Nitroglycerin (Nitroglycerin Sl 0.4 Mg Tablet) 0.4 mg SUBLINGUAL Q5MIN PRN PRN Reason: Chest Pain Pantoprazole Sodium (Pantoprazole 40 Mg Tablet) 40 mg PO DAILY [facility] [place] Last Admin: 01/03/25 08:29 Dose: 40 mg Psyllium Hydrophilic Mucilloid (Psyllium Sugar Free Powder Packet) 1 packet PO QAM [facility] [place] Last Admin: 01/02/25 08:56 Dose: 1 packet Timolol Maleate (Timolol Maleate 0.5% Op Soln 5 Ml Bottle) 1 drop EACH EYE [facility] Last Admin: 01/02/25 20:55 Dose: 1 drop Sedation/Anesthesia: No previous sedation/anesthesia problems (including family history). [facility] Past Medical History Medical History Obesity Glaucoma Diabetes HTN (hypertension) Hypercholesterolemia GERD (gastroesophageal reflux disease) Family History Family History Grandparent ETOH abuse Myocardial infarct Father High cholesterol Father Diabetes type 2 Father H/O heart artery stent Father Hypertension Other CAD (coronary artery disease) Myocardial infarct S/P CABG (coronary artery bypass graft) Father CAD (coronary artery disease) Father No problems noted. Social History Social History Smoking status: Never smoker Alcohol intake: current Drinks per week: 3 Substance use: never Substance use type: does not use Lack of Transportation: No Lack of Food: Never True Current Housing: I Have Housing Concerned About Future Housing: No Difficulty Paying Gas/Electric Bills: No Difficulty Paying for Meds: No Currently Unemployed: No Education: Bachelor's Degree Difficulty w/ Childcare or Family Care: No Living arrangements: other Additional living arrangements comments: With Spiritual care concerns: No Mod Sed Physical Exam Physical Exam Pre Procedural Exam: Normal: Lungs, Heart Size, Heart Rate and Heart Rhythm Hours since solid foods: 12 Hours since liquid intake: 12 Mallampati Classification: class II Internal Medicine - PN: Obj Da Vital Signs Vital Signs: Vital Signs - 24 hr 01/02/25 09:00 01/02/25 09:01 01/02/25 10:00 Temperature Pulse Rate 94 Respiratory Rate Blood Pressure Pulse Oximetry 96 Oxygen Delivery Room Air Room Air 01/02/25 11:52 01/02/25 12:00 01/02/25 12:00 Temperature 36.4 C L Pulse Rate 88 83 Respiratory Rate 17 Blood Pressure 121/83 Pulse Oximetry 94 Oxygen Delivery Room Air 01/02/25 14:00 01/02/25 15:35 01/02/25 15:41 Temperature 36.9 C Pulse Rate 81 74 Respiratory Rate 19 Blood Pressure 135/95 H Pulse Oximetry 98 Oxygen Delivery Room Air 01/02/25 16:00 01/02/25 18:00 01/02/25 19:26 Temperature 36.9 C Pulse Rate 92 89 83 Respiratory Rate 17 Blood Pressure 108/71 Pulse Oximetry 96 Oxygen Delivery 01/02/25 20:00 01/02/25 20:00 01/02/25 20:55 Temperature Pulse Rate 80 80 86 Respiratory Rate 17 Blood Pressure Pulse Oximetry 96 Oxygen Delivery Room Air 01/02/25 21:54 01/02/25 23:37 01/02/25 23:37 Temperature Pulse Rate 72 74 74 Respiratory Rate 17 Blood Pressure Pulse Oximetry 96 Oxygen Delivery Room Air 01/03/25 00:00 01/03/25 02:00 01/03/25 03:47 Temperature 36.7 C Pulse Rate 71 68 72 Respiratory Rate 18 18 Blood Pressure 125/72 Pulse Oximetry 93 93 Oxygen Delivery Room Air 01/03/25 03:47 01/03/25 04:00 01/03/25 05:52 Temperature 36.4 C Pulse Rate 72 73 78 Respiratory Rate 16 Blood Pressure 118/73 Pulse Oximetry 92 Oxygen Delivery 01/03/25 07:48 01/03/25 08:28 Temperature 36.8 C Pulse Rate 72 81 Respiratory Rate 18 Blood Pressure 137/86 Pulse Oximetry 95 Oxygen Delivery Intake/Output Intake/Output: Intake & Output 12/31/24 01/01/25 01/02/25 01/03/25 23:59 23:59 23:59 23:59 Intake Total 1434 1280 360 Balance 1434 1280 360 Meds/Results Medications: Active Medications Generic Name Dose Route Start Last Admin Trade Name Freq PRN Reason Stop Dose Admin Acetaminophen 650 mg 12/31/24 14:02 01/01/25 20:22 Acetaminophen 325 Mg Tablet PO 650 mg Q4H PRN Administration Mild Pain (1-3) or Fever Aspirin 81 mg 01/01/25 08:00 01/03/25 08:28 Aspirin 81 Mg Chewable Tablet PO 81 mg DAILY@0800 DINO Administration Atorvastatin Calcium 10 mg 01/01/25 09:00 01/03/25 08:29 Atorvastatin 10 Mg Tablet PO 10 mg DAILY DINO Administration Carvedilol 6.25 mg 12/31/24 21:00 01/03/25 08:28 Carvedilol 6.25 Mg Tablet PO 6.25 mg Q12H DINO Administration Dextrose 12.5 gm 12/31/24 15:49 Dextrose 50% 25 Gm/50 Ml Syringe IV PUSH PRN PRN Hypoglycemia Protocol Glucagon 1 mg 12/31/24 15:49 Glucagon For Inj 1 Mg Vial IM PRN PRN Hypoglycemia Protocol Glucose 15 gm 12/31/24 15:49 Glucose Oral Gel 15 Gm Of Glucse In 37.5 Gm Tube PO PRN PRN Hypoglycemia Protocol Hydrochlorothiazide 12.5 mg 01/01/25 09:00 01/03/25 08:29 Hydrochlorothiazide 12.5 Mg Capsule PO 12.5 mg QAM DINO Administration Dextrose 1,000 mls @ 100 mls/hr 12/31/24 15:49 Dextrose 5% 1,000 Ml IVPB PRN PRN Hypoglycemia Protocol Insulin Aspart 2 - 5 units 12/31/24 17:00 01/02/25 16:36 Insulin Aspart (*Bkc) 100 Units/Ml SUB-Q Not Given TIDWM DINO Protocol Losartan Potassium 50 mg 01/01/25 09:00 01/03/25 08:29 Losartan Potassium 50 Mg Tablet PO 50 mg QAM DINO Administration Montelukast Sodium 10 mg 01/01/25 09:00 01/03/25 08:28 Montelukast Sodium 10 Mg Tablet PO 10 mg DAILY DINO Administration Nitroglycerin 0.4 mg 12/31/24 20:38 Nitroglycerin Sl 0.4 Mg Tablet SUBLINGUAL Q5MIN PRN Chest Pain Pantoprazole Sodium 40 mg 01/01/25 09:00 01/03/25 08:29 Pantoprazole 40 Mg Tablet PO 40 mg DAILY DINO Administration Psyllium Hydrophilic Mucilloid 1 packet 01/01/25 09:00 01/02/25 08:56 Psyllium Sugar Free Powder Packet PO 1 packet QAM DINO Administration Timolol Maleate 1 drop 01/01/25 21:00 01/02/25 20:55 Timolol Maleate 0.5% Op Soln 5 Ml Bottle EACH EYE 1 drop HS DINO Administration Radiology Results: ITS Impressions Chest X-Ray 12/31/24 11:36 IMPRESSION: 1. No acute cardiopulmonary findings. Labs 01/03/25 08:01 01/03/25 08:01 Labs: Laboratory Results - last 24 hr 01/02/25 01/02/25 01/02/25 11:22 16:32 19:59 WBC RBC Hgb Hct MCV MCH MCHC RDW Plt Count MPV Sodium Potassium Chloride Carbon Dioxide Anion Gap BUN Creatinine Estim Creat Clear Calc Estimated GFR Glucose POC Capillary Glucose 210 H 170 H 227 H Calcium 01/03/25 01/03/25 07:16 08:01 WBC 6.0 RBC 5.52 Hgb 16.5 Hct 46.7 MCV 84.6 MCH 29.9 MCHC 35.3 RDW 12.6 Plt Count 218 MPV 9.1 Sodium 134 L Potassium 3.8 Chloride 101 Carbon Dioxide 27 Anion Gap 6 BUN 11 Creatinine 0.74 Estim Creat Clear Calc 122 Estimated GFR > 60 Glucose 162 H POC Capillary Glucose 177 H Calcium 9.0 ASA Classification/Sedation ASA Classification/Sedation ASA Class: III Emergent: No Risks: Risks, benefits and alternatives explained and patient/family accepted plan for sedation. Patient re-evaluated immediately prior to sedation.
--- NOTE | 2025-01-03 12:08 | WPDCARDPROC ---
Cardiac Cath Procedure Note Date of procedure:: 01/03/25 Performing physician:: Barbara Garvey MD Indication:: CATHETERIZATION LABORATORY REPORT Procedure Date: 01/03/2025 Moderate sedation: Versed and Fentanyl were ordered and given in my presence at 11:30 a.m., procedure ended at 11:58 a.m.. Supervision of nurse monitored moderate sedation with Versed and Fentanyl was provided for 28 minutes. Fentanyl 100 mcg Versed 1 mg Pre-op Diagnosis: Unstable angina Abnormal stress test Post-op Diagnosis: Normal coronary arteries Procedure(s): Ultrasound-guided right radial artery access Left heart catheterization with coronary angiography Access Site: Right radial artery Brief History and Clinical Indications: All risks, benefits and alternatives to left heart catheterization with or without percutaneous coronary intervention was discussed at length with the patient. Risk of complications including but not limited to bleeding, infection, arrhythmia, stroke, worsening kidney function, blood loss, groin hematoma, limb loss, emergency coronary artery bypass grafting, and even were discussed with the patient and all questions were answered. The patient understood and wished to proceed. Time out called, patient name, date of , medical record number, allergies, procedure performed, identify Freight Claim Investigator, patient and staff member concurred with accurate data, procedure carried on. Findings: LEFT HEART CATHETERIZATION FINDINGS: 1. Left main: The left main coronary artery is widely patent without any significant obstructive disease. 2. Left anterior descending: The LAD and the diagonal branches are widely patent without any significant obstructive angiographic disease. 3. Left circumflex: The left circumflex artery is a small vessel and widely patent without any significant obstructive angiographic disease. 4. Right coronary artery: The RCA is widely patent without any significant obstructive angiographic disease. It bifurcates into the RPDA and gives of multiple RPL branches which are patent without any significant obstructive angiographic disease. The RCA is the dominant vessel. 5. Left ventricle: A. End-diastolic pressure 13 mmHg. B. LV gram deferred. C. No significant gradient across aortic valve on catheter pullback. 6. Opening AO pressure 124/93/109 and closing AO pressure 123/90/1 0 6 mm Hg. Description of Procedure: Informed consent signed and placed in the chart. Patient transferred to cathode ray tube salvage processor room. Prepped and draped in usual sterile fashion. 2% lidocaine injected subcutaneously in right wrist area. 22-gauge venipuncture catheter used to access the right radial artery with the Seldinger technique. 6-FR slender sheath placed in right radial artery. Nitroglycerin 200mcg, Verapamil 2.5mg, and Heparin 5000U was given intraarterial through the sheath. J wire advanced under fluoroscopy Five Thai JL4 diagnostic catheter engaged Left Main Coronary Artery. 5 Thai JR4 for diagnostic catheter engaged Right Coronary Artery Multiple orthogonal angiogram obtained and reviewed 5 Thai JR4 diagnostic catheter crossed aortic valve to obtain LVEDP, LV angiogram deferred. Hemostasis was achieved by application of TR band. Assessment: Normal coronary arteries without any obstructive CAD. False-positive stress test. Chest pain most likely related to hypertension. Post Operative Condition: Stable No significant blood loss Disposition: Floor Plan: The patient will be monitored in the recovery area. Continue risk factor modification for hypertension, hyperlipidemia, diabetes mellitus. IV fluids normal saline at 100 mL/hour. Evaluate noncardiac causes for chest pain. TTE today. TR band removal per protocol. Barbara Garvey MD, MS, FACC, [facility] Interventional Cardiology
[2025-01-03] MEDS: SODIUM CHLORIDE 0.9% IV 1,000 ML 100 ML IV CONT (12:30)
--- NOTE | 2025-01-03 12:49 | P.DS_ITS ---
DS: Admitting Diagnosis Discharge Date 01/03/2025 Admitting Diagnosis Chest pain DS: Discharge Diagnosis Discharge Diagnosis (1) Angina pectoris, unstable: Code(s): I20.0 - Unstable angina Status: Acute Assessment and Plan: Please refer to hospital course for brief summary Patient had episode of chest pain while undergoing cardiac stress test that was relieved with sublingual nitro. Stress test results are not available for review. Patient has no known history of coronary artery disease but has several risk factors and family history. Troponins are negative. EKG reads sinus rhythm with incomplete right bundle branch block. Chest x-ray with no acute cardiopulmonary findings. -cardiology consulted -p.r.n. sublingual nitro -ASA 324 in ED -Lovenox 1 mg/kg once given Cardiology plans left heart catheterization on Friday NPO after midnight (2) Diabetes: Code(s): E11.9 - Type 2 diabetes mellitus without complications Status: Chronic Assessment and Plan: - hypoglycemia protocol - POC blood glucose ACHS - home medication: Metformin, Ozempic - correct regimen ordered: Low-dose correctional scale - A1C 7.6 (3) Hypercholesterolemia: Code(s): E78.00 - Pure hypercholesterolemia, unspecified Status: Chronic Assessment and Plan: Continue Lipitor (4) HTN (hypertension): Code(s): I10 - Essential (primary) hypertension Status: Chronic Assessment and Plan: Continue hydrochlorothiazide, Cozaar, Coreg, lisinopril (5) GERD (gastroesophageal reflux disease): Code(s): K21.9 - Gastro-esophageal reflux disease without esophagitis Status: Chronic Assessment and Plan: Continue pantoprazole DS: Summary Hospital Course Hospital Course: 54-year-old male past medical history of DM 2, HTN, hyperlipidemia, GERD presents to the ED on 12/31/2024 due to having chest pain while undergoing a cardiac stress test. Sublingual nitro given in the office before patient arrived. Patient was asymptomatic by the time he arrived to the ED. patient states he has had intermittent chest tightness for the past 3 weeks that occurs with exertion and resolves with rest. Patient states his primary care provider referred him for a cardiac stress test due to a recent increase in his blood pressure and a strong family history of cardiac disease. Patient denies shortness of breath, diaphoresis or radiation of pain. He describes the pain is at tight, dull ache in the lower chest. Heart score 4. Initial vital signs 140/95, HR 93, respirations 16, temperature 98.4?, 97% on room air Labs significant for sodium 134, glucose 235, AST 60, ALT 105. Troponins neg ative. EKG reveals sinus rhythm and incomplete right bundle-branch block. Chest x-ray with no acute cardiopulmonary findings. Patient underwent cardiac catheterization today and no significant finding. Patient can follow-up with the PCP and Cardiology within a week upon discharge. On the day of discharge, the patient was seen and examined. Vital signs were stable. Physical exam were stable and labs were reviewed at length. Discharge instructions, medications, and follow-up appointments were discussed with the patient at length and all day questions were answered. ER warnings were given. Status at Discharge Cognitive/behavioral status at discharge: Stable Time Spent with Patient Time attestation: Total time spent providing and/or coordinating discharge services: 45 minute Exam Narrative: GENERAL: non-toxic appearing, in no acute distress. HEAD: Normocephalic, atraumatic. EYES: PERRLA. Conjunctivae clear. NECK: Trachea midline. No adenopathy, no masses. RESPIRATORY: Airway patent, respirations nonlabored. CTA. CARDIOVASCULAR: Regular rate and rhythm w GASTROINTESTINAL: Abdomen is soft and nontender. No organomegaly. Bowel soun ds normal in all quadrants. GENITOURINARY: Defer MUSCULOSKELETAL: Moves all extremities. No gross deformities. Moves all extremities well. No calf tenderness. SKIN: Warm, dry, normal color. NEURO: A&O X4. Speech clear PSYCHIATRIC: Normal interaction DS: Data Data Completed and Pending Labs on day of discharge: Labs from last 24 hours 01/03/25 01/03/25 01/02/25 08:01 07:16 19:59 WBC 6.0 RBC 5.52 Hgb 16.5 Hct 46.7 MCV 84.6 MCH 29.9 MCHC 35.3 RDW 12.6 Plt Count 218 MPV 9.1 Sodium 134 L Potassium 3.8 Chloride 101 Carbon Dioxide 27 Anion Gap 6 BUN 11 Creatinine 0.74 Estim Creat Clear Calc 122 Estimated GFR > 60 Glucose 162 H POC Capillary Glucose 177 H 227 H Calcium 9.0 01/02/25 16:32 WBC RBC Hgb Hct MCV MCH MCHC RDW Plt Count MPV Sodium Potassium Chloride Carbon Dioxide Anion Gap BUN Creatinine Estim Creat Clear Calc Estimated GFR Glucose POC Capillary Glucose 170 H Calcium Discharge Plan Discharge Attending physician on discharge: Jose White Consulting providers: Baldomero Mccann Discharging Clinician: Jose White Anticipated Discharge Date/Time: 01/03/25 12:46 Patient Disposition: Home Activity: as tolerated Diet: heart healthy Discharge Instructions: Please follow-up with it Cardiology within a week upon discharge Please follow-up with the PCP within a week upon discharge In the event of chest pain or palpitation or any other concerning symptoms please return to ED Patient Instructions: Angina (GEN), Chest Pain (GEN), Chronic Hypertension (GEN), Mediterranean Diet (GEN), Type 2 Diabetes Management for Adults (GEN) Patient Language: Vietnamese Stand Alone Forms: General Discharge Information Follow-up/Referrals: Baldomero Mccann MD [Physician, Cardiology] Garcias,MD Iglesia [Primary Care Provider] Discharge Medications: New aspirin [Children's Aspirin] 81 mg Tablet,Chewable 81 mg PO DAILY@0800 Qty: 30 0RF Continued atorvastatin 10 mg tablet 10 mg PO DAILY pantoprazole 40 mg tablet,delayed release (DR/EC) 40 mg PO DAILY montelukast 10 mg tablet 10 mg PO DAILY timolol maleate 0.5 % drops 1 drp EACH EYE DAILY metformin 500 mg tablet extended release 24 hr 500 mg PO DAILY Ozempic 0.25 mg or 0.5 mg(2 mg/1.5 mL) pen injector 0.5 mg SUBCUT WEEKLY losartan-hydrochlorothiazide 50-12.5 mg tablet 1 tablet PO DAILY carvedilol 12.5 mg tablet 6.25 mg PO Q12H psyllium husk [Metamucil Sugar-Free (aspart)] See Rx Instructions PO DAILY Rx Instructions: packet orally daily; Centrum Silver Men [id number] mcg tablet 1 tablet PO DAILY coQ10 (ubiquinol) [Qunol Michael CoQ10] 100 mg capsule 100 mg PO DAILY Fish Oil 900 mg-360 mg- 455 mg-1,000 mg capsule 2 cap PO DAILY Date of admission: 12/31/24 14:02 Primary Care Provider: AnamIglesia Admitting Provider: Demond Nguyen Attending physician on admission: Demond Nguyen Condition: Stable
--- NOTE | 2025-01-05 11:08 | PC.NURSE ---
Addendum entered by Amanda Chaney RN 01/05/25 11:11: Pt verbalized understanding. Original Note: This RN contacted pt for d/c followup phone call and pt inquired about small amount of localized swelling and this RN informed him that that is normal. This RN stated that if swelling increases, or is accompanied by pain or signs of infection to seek medical attention.
== END 2025-01-03 17:38 | disposition home or self-care (01) ==
LOC: ANHED 13:28 → ANHIMU 01-03 10:49
PROVIDERS: Emergency Medicine; Internal Medicine Interventional Cardiology; Nurse Practitioner Adult Health; Admitting Provider Internal Medicine; Emergency Provider Emergency Medicine; PCP Internal Medicine; Visit Provider General Practice
PROC: 4A023N7 Measurement of Cardiac Sampling and Pressure, Left Heart, Percutaneous Approach (ICD-10-PCS; CPT 93452; principal; 2025-01-03 11:00)
DX: I20.0 Unstable angina (principal); I45.10 Unspecified right bundle-branch block; I34.0 Nonrheumatic mitral (valve) insufficiency; I10 Essential (primary) hypertension; E78.2 Mixed hyperlipidemia; E11.9 Type 2 diabetes mellitus without complications; E66.9 Obesity, unspecified; Z68.35 Body mass index [BMI] 35.0-35.9, adult; K21.9 Gastro-esophageal reflux disease without esophagitis; H40.9 Unspecified glaucoma; Z79.84 Long term (current) use of oral hypoglycemic drugs; Z79.85 Long-term (current) use of injectable non-insulin antidiabetic drugs; Z81.1 Family history of alcohol abuse and dependence; Z82.49 Family history of ischemic heart disease and other diseases of the circulatory system; Z83.3 Family history of diabetes mellitus
CPT/HCPCS: 36415; 71046; 80048; 80053; 82948; 83036; 83690; 84484; 85025; 85027; 85610; 85730; 93005; 93306; 93458; 99285; A9270; C1769; C1887; C1894; J1644; J1650; J1815; J2003; J2250; J2305; J3010; J7030; J7040